=== PATIENT | female | born 1980 ===

== ENCOUNTER 2025-11-06 05:55 | Emergency (ER) | payer OTHER, SELFPAY ==
--- OUTSIDE RECORDS SUMMARY | 2025-11-05 17:31 | XMS_ITS | Encounter Summary ---
Author Organization [facility] Address [id number] [place] [id number] Care Team Providers Care Child Care Development Specialist Name Role Phone Vandana Antonio MD Primary Care Prov ider Reason for Visit * Reason Comments Abdominal Pain Abdominal Pain, Weak ness Encounter Details Date Type Department Care Team (Late st Contact Info) Description 11/05/2025 5:31 PM [facility] Emergency [address] [place] [phone] Darryl Hawkins MD [address] [place] [address] Josias Mark MD [address] [place] [address] Ahmet Dias MD [address] [place] [address] Gastroenteritis (Primary Dx); Generalized weakness; Malaise and fatigue Social History Tobacco Use Types Packs/Day Years Used Date Smoking Tobacco: Never Smokeless Tobacco: Never Alcohol Use Standard Drinks/Week Comments Yes 0 (1 standard drink = 0.6 oz pur e alcohol) Housing Instability Answer Date Recorde d Are you worried that in the next 2 months you may not have stable housing? Yes 05/14/2025 Food Access & Nutrition Answer Date Rec orded Do you have access to a vari ety of food including fruits and vegetables? No 05/14/2025 Health Literacy Answer Date Recorded How often do you need to hav e someone help you when you read instructions, pamphlets, or other written material from your doctor or pharmacy? Never 05/14/2025 Caregiver: How often do you need to have someone help you when you read instructions, pamphlets, or other written material from your doctor or pharmacy? Not on file 05/14/2025 Financial Risk Answer Date Recorded How hard is it for you to pa y for the very basics like food, housing, medical care, and air conditioning / heating? Not very hard 05/14/2025 Transportation Answer Date Recorded Has the lack of transportati on kept you from meetings, work, or from getting things needed for daily living? Yes Has the lack of transportati on kept you from medical appointments or from getting medications? Yes 05/14/2025 Social Isolation Answer Date Recorded How often do you feel lonely or isolated from those around you? Sometimes 05/14/2025 Food Risk Answer Date Recorded Within the past 12 months we worried whether our food would run out before we got money to buy more. Sometimes true 025 Within the past 12 months th e food we bought just didn't last and we didn't have money to get more. Sometimes true 05/14/2025 Dependent Care Answer Date Recorded Do you need help finding or paying for care for your loved ones. For example, early childhood assistant or elderly care for an older adult? No 05/14/2025 Education Answer Date Recorded Do you think completing more education or training, like finishing a GED, going to college, or learning a trade, would be helpful for you? No 05/14/2025 Employment and Income Answer Date Recor ded During the last four weeks, have you been actively looking for work? No 05/14/2025 Living Situation Answer Date Recorded What is your living situation? Unrecognized valu e 05/14/2025 Comments No Sex and Gender Information Value Date Recorded Sex Assigned at Female 02/16/2025 4:41 PM EDT Legal Sex Female 9:50 PM EST Gender Identity Female 02/16/2025 4:41 PM EDT Sexual Orientation Straight 02/16/2025 4: 41 PM EDT Occupation Industry Job Start Date Job End Date unemployed Not on file Not on file Not on file documented as of this encounter Last Filed Vital Signs Vital Sign Reading Time Taken Comments Blood Pressure 110/76 11/06/2025 3:26 AM EST Pulse 76 11/06/2025 3:26 AM EST Temperature 36.4 C (97.5 F) 11/06/2025 3:26 AM EST Respiratory Rate 16 11/06/2025 3:26 AM EST Oxygen Saturation 99% 11/06/2025 3:26 AM EST Inhaled Oxygen Concentration - - Weight - - Height - - Body Mass Index - - documented in this encounter Progress Notes * Amandeep Polanco MD - 11/05/2025 5:46 PM EST 45-year-old female presents for abdominal bloating cramping vomiting and diarrhea for the last few days. States she is also having very dark stools. Feels generally weak. Possible GI bleed, evaluate CBC for symptomatic anemia. * Nina Francois RN - 11/05/2025 5:44 PM EST Pt to ed reports nausea , vomiting, diarrhea, with cramping and bloating started within last few days. Pt reports excessive tired over last few months. Pt reports dark stools. * Darryl Hawkins MD - 11/05/2025 5:31 PM EST HPI Chief Complaint Patient presents with Abdominal Pain Abdominal Pain, Weakness 45-year-old with history of anxiety, PTSD, homelessness, fibromyalgia, presents with abdominal bloating and cramping vomiting and diarrhea for the past few days. States she is also having dark stools. Generalized weakness. HemoCue stable on arrival. Abdomen nontender to palpation. No data recorded Patient History Medical History[1] Surgical History[2] Family History[3] Social History Tobacco Use Smoking status: Never Smokeless tobacco: Never Vaping Use Vaping status: Never Used Substance Use Topics Alcohol use: Yes Drug use: No Review of Systems Review of Systems All other systems reviewed and are negative. Physical Exam ED Triage Vitals [11/05/25 1748] Temp Heart Rate Resp BP 36.9 ??C (98.4 ??F) 86 16 (!) 124/112 SpO2 Temp Source Heart Rate Source Patient Position 98 % Oral -- -- BP Location FiO2 (%) -- -- Physical Exam Constitutional: Appearance: She is well-developed. HENT: Head: Normocephalic and atraumatic. Nose: Nose normal. Mouth/Throat: Mouth: Mucous membranes are moist. Eyes: Extraocular Movements: Extraocular movements intact. Pupils: Pupils are equal, round, and reactive to light. Cardiovascular: Rate and Rhythm: Normal rate. Pulses: Normal pulses. Pulmonary: Effort: Pulmonary effort is normal. Breath sounds: Normal breath sounds. Abdominal: General: Abdomen is flat. Palpations: Abdomen is soft. Tenderness: There is no abdominal tenderness. Musculoskeletal: Cervical back: Normal range of motion and neck supple. Skin: General: Skin is warm and dry. Neurological: Mental Status: She is alert. Mental status is at baseline. Psychiatric: Mood and Affect: Mood normal. Behavior: Behavior normal. Lab Results I ordered and reviewed: Labs Reviewed COMPREHENSIVE METABOLIC PANEL - Abnormal Result Value Sodium 140 Potassium 3.5 Chloride 106 CO2 24 Anion Gap 10 Glucose 78 BUN <5 (*) Creatinine 0.83 eGFR 89 Calcium 8.7 AST (SGOT) 21 ALT (SGPT) 22 Alkaline Phosphatase 53 Total Protein 6.4 Albumin 4.0 Total Bilirubin 0.2 CBC WITH AUTO DIFFERENTIAL - Abnormal WBC 9.5 RBC 4.20 Hemoglobin 13.0 Hematocrit 40.0 MCV 94.3 MCH 30.7 MCHC 32.5 RDW 12.5 Platelets 251 MPV 10.3 NRBC 0.0 NRBC Absolute 0.00 Neutrophils Relative 73.0 Lymphocytes Relative 17.0 Monocytes Relative 7.0 Eosinophils Relative 2.2 Basophils Relative 0.4 Immature Granulocytes Relative 0.4 Neutrophils Absolute 6.90 Lymphocytes Absolute 1.61 Monocytes Absolute 0.66 Eosinophils Absolute 0.21 Basophils Absolute 0.04 Immature Granulocytes Absolute 0.04 (*) URINALYSIS WITH REFLEX MICROSCOPIC - Normal Specific Boyce Urine 1.007 pH, Urine 8.0 Leukocytes, Urine Negative Nitrite, Urine Negative Protein, Urine Negative Glucose, Urine Negative Ketones, Urine Negative Urobilinogen, Urine 0.2 Bilirubin, Urine Negative Blood, Urine Negative LIPASE - Normal Lipase 27 ETHANOL - Normal Ethanol Level <3 POC , URINE DIAGNOSTIC - Normal HCG, Ur POC Negative POC hCG Int QC Pass? Yes CBC AND DIFFERENTIAL Narrative: The following orders were created for panel order CBC and differential. Procedure Abnormality Status --------- ------ CBC auto differential[[id number]] Abnormal Final result Please view results for these tests on the individual orders. URINALYSIS WITH REFLEX MICROSCOPIC Narrative: The following orders were created for panel order Urinalysis with reflex microscopic ([id number]). Procedure Abnormality Status --------- ------ Urinalysis with reflex ...[[id number]] Normal Final result Please view results for these tests on the individual orders. URINALYSIS WITH REFLEX MICROSCOPIC AND CULTURE Narrative: The following orders were created for panel order Urinalysis with reflex microscopic and culture. Procedure Abnormality Status --------- ------ Urinalysis with reflex ...[[id number]] Cullen urine culture tube[[id number]] Please view results for these tests on the individual orders. DRUG ABUSE SCREEN 8A PANEL, URINE METHADONE SCREEN, URINE URINALYSIS WITH REFLEX MICROSCOPIC AND CULTURE ED Course & MDM ED Course as of 11/06/25217Nov 06, 2025217 Care of patient signed out to Dr. Mark for further workup and management. Appreciate care. [WL] ED Course User Index [WL] Darryl Hawkins MD Clinical Impressions as of 11/06/25217 Gastroenteritis Generalized weakness Malaise and fatigue I ordered the following medications: Medications pantoprazole (PROTONIX) injection 80 mg (has no administration in time range) sodium chloride 0.9 % bolus 1,000 mL (has no administration in time range) Medical Decision Making Differential diagnosis considered but not limited to, acute gastroenteritis, nausea vomiting diarrhea, possible melena Initial laboratory workup reassuring, patient hemodynamically stable. Care of patient signed out to Dr. Mark for further workup and management. Appreciate care. Darryl Hawkins MD [1] Past Medical History: Diagnosis Date ADHD Arthritis Depressive disorder DX:Depressive disorder Factor V Leiden ([facility] V24) Fibromyalgia 11/05/2008 DX:Fibromyalgia; COMMENT: Some help with paroxetine H/O chlamydia infection 1996 DX:H/O chlamydia infection Lack of housing 08/17/2018 DX:Lack of housing Migraine syndrome 03/02/2011 DX:Migraine syndrome Neurasthenia 05/05/2006 DX:Neurasthenia Nonallopathic lesion of sacral region 05/13/2011 DX:Nonallopathic lesion of sacral region; COMMENT: IMO update Obesity (BMI 30-39.9) 08/17/2018 DX:Obesity (BMI 30-39.9) PTSD (post-traumatic stress disorder) [2] Past Surgical History: Procedure Laterality Date SECTION 1997 PROCEDURE: [place] DELIVERY ONLY CHOLECYSTECTOMY 1997 PROCEDURE: [place] LAPAROSCOPY SURG CHOLECYSTECTOMY TYMPANOSTOMY TUBE PLACEMENT Bilateral 1983 PROCEDURE: HISTORICAL PE TUBES [3] Family History Problem Relation Name Age of Onset Arthritis Mother Other (Other: lipomas) Mother COPD Father No Known Problems Sister Arthritis Maternal Grandmother COPD Maternal Grandmother Diabetes Maternal Grandfather Heart attack Maternal Grandfather mat GGF Other cancer Maternal Grandfather Prostate cancer Maternal Grandfather Other (Other: substance abuse) Paternal Grandmother killed by train Diabetes Paternal Grandfather Lung cancer Paternal Grandfather Other (Other: kidney ca) Aunt Lung cancer Aunt Liver cancer Aunt Breast cancer Aunt Breast cancer Aunt pat Bladder Cancer Uncle maternal Pancreatic cancer Uncle maternal Thyroid disease Other m grt aunt GGaunt Breast cancer Other m grt aunt Colon cancer Neg Hx Ovarian cancer Neg Hx Uterine cancer Neg Hx Darryl Hawkins MD 11/06/[address] documented in this encounter Plan of Treatment Scheduled Orders Name Type Priority Associated Diagnoses Order Schedule Urinalysis with reflex microscopic and culture Lab STAT STAT for 1 Occurrences starting 11/06/2025 until 11/06/2025 Drug abuse screen 8a panel, urine Lab STAT Once for 1 Occurrences starting 11/06/2025 until 11/06/2025 Methadone, urine Lab STAT Once for 1 Occurrences starting 11/06/2025 until 11/06/2025 Urinalysis with reflex microscopic and culture Lab Routine Once for 1 Occurrences starting 11/06/2025 until 11/06/2025 Cullen urine culture tube Lab Routine Once for 1 Occurrences starting 11/06/2025 until 11/06/2025 POC Fecal Occult Blood Diagnostic Point of Care Testing STAT Once for 1 Occurrences starting 11/06/2025 until 11/06/2025 documented as of this encounter Procedures Procedure Name Priority Date/Time Associated Diagnosis Comments CBC WITH AUTO DIFFERENTIAL STAT 11/05/2025 6:15 PM EST CBC AND DIFFERENTIAL STAT 11/05/2025 6:15 PM EST POC , URINE DIAGNOSTIC STAT 11/05/2025 6:15 PM EST LIPASE STAT Add-on 11/05/2025 6:15 PM EST ETHANOL STAT Add-on 11/05/2025 6:15 PM EST COMPREHENSIVE METABOLIC PANEL STAT 11/05/2025 6:15 PM EST URINALYSIS WITH REFLEX MICROSCOPIC STAT 11/05/2025 6:10 PM EST URINALYSIS WITH REFLEX MICROSCOPIC STAT 11/05/2025 6:10 PM EST CULLEN URINE CULTURE TUBE Routine 11/05/2025 6:09 PM EST EXTRA TUBES Routine 11/05/2025 6:09 PM EST documented in this encounter Results * Ethanol (11/05/2025 6:15 PM EST) Ethanol Level <3 0 - 10 mg/dL 11/06/2025 1:20 AM EST [facility] Blood Venous blood specimen / Unknown Venipuncture / Unknown 11/05/2025 6:15 PM EST 11/05/2025 6:32 PM EST us Darryl Hawkins MD LAB BLOOD ORDERABLES Final Result [facility] [address] [place] [address], [place] [phone] * Lipase (11/05/2025 6:15 PM EST) [facility] Lipase 27 12 - 53 unit/L 11/05/2025 9:56 PM EST [facility] Blood Venous blood specimen / Unknown Venipuncture / Unknown 11/05/2025 6:15 PM EST 11/05/2025 6:32 PM EST Riley SALGADO LAB BLOOD ORDERABLES Final Result [facility] [address] [place] [address], [place] [phone] * POC , urine manually resulted (11/05/2025 6:15 PM EST) [facility] HCG, Ur POC Negative Negative POC hCG Int QC Pass? Yes Yes Urine Urine specimen obtained by clean catch procedure / Unknown 11/05/2025 6:15 PM EST Darryl Hawkins MD POINT OF CARE TEST ENTER/ED IT ORDERABLES Final Result * (ABNORMAL) CBC auto differential (11/05/2025 6:15 PM EST) [facility] WBC 9.5 4.8 - 10.8 K/mcL LAB HEMETOLOGY METHOD 11/05/2025 6:40 PM [facility] RBC 4.20 3.80 - 4.80 M/mcL LAB HEMETOLOGY METHOD 11/05/2025 6:40 PM [facility] Hemoglobin 13.0 11.5 - 16.0 g/dL LAB HEMETOLOGY METHOD 11/05/2025 6:40 PM [facility] Hematocrit 40.0 35.0 - 47.0 % LAB HEMETOLOGY METHOD 11/05/2025 6:40 PM [facility] MCV 94.3 79.0 - 98.0 FL LAB HEMETOLOGY METHOD 11/05/2025 6:40 PM [facility] MCH 30.7 27.0 - 32.0 pcg LAB HEMETOLOGY METHOD 11/05/2025 6:40 PM [facility] MCHC 32.5 32.0 - 37.0 g/dL LAB HEMETOLOGY METHOD 11/05/2025 6:40 PM [facility] RDW 12.5 11.0 - 15.0 % LAB HEMETOLOGY METHOD 11/05/2025 6:40 PM [facility] Platelets 251 130 - 400 K/mcL LAB HEMETOLOGY METHOD 11/05/2025 6:40 PM [facility] MPV 10.3 7.0 - 11.0 FL LAB HEMETOLOGY METHOD 11/05/2025 6:40 PM [facility] NRBC 0.0 <1.0 % LAB HEMETOLOGY METHOD 11/05/2025 6:40 PM [facility] NRBC Absolute 0.00 <0.10 K/mcL LAB HEMETOLOGY METHOD 11/05/2025 6:40 PM [facility] Neutrophils Relative 73.0 % LAB HEMETOLOGY METHOD 11/05/2025 6:40 PM [facility] Lymphocytes Relative 17.0 % LAB HEMETOLOGY METHOD 11/05/2025 6:40 PM [facility] Monocytes Relative 7.0 % LAB HEMETOLOGY METHOD 11/05/2025 6:40 PM [facility] Eosinophils Relative 2.2 % LAB HEMETOLOGY METHOD 11/05/2025 6:40 PM [facility] Basophils Relative 0.4 % LAB HEMETOLOGY METHOD 11/05/2025 6:40 PM [facility] Immature Granulocytes Relative 0.4 % LAB HEMETOLOGY METHOD 11/05/2025 6:40 PM [facility] Neutrophils Absolute 6.90 1.50 - 7.00 K/mcL LAB HEMETOLOGY METHOD 11/05/2025 6:40 PM EST [facility] Lymphocytes Absolute 1.61 1.00 - 5.00 K/[facility] LAB HEMETOLOGY METHOD 11/05/2025 6:40 PM EST [facility] Monocytes Absolute 0.66 0.20 - 1.00 K/[facility] LAB HEMETOLOGY METHOD 11/05/2025 6:40 PM EST [facility] Eosinophils Absolute 0.21 0.00 - 0.50 K/[facility] HEMETOLOGY METHOD 11/05/2025 6:40 PM EST [facility] Basophils Absolute 0.04 0.00 - 0.20 K/[facility] HEMETOLOGY METHOD 11/05/2025 6:40 PM EST [facility] Immature Granulocytes Absolute 0.04(H) 0.00 - 0.03 K/[facility] HEMETOLOGY METHOD 11/05/2025 6:40 PM EST [facility] Blood Venous blood specimen / Unknown Venipuncture / Unknown 11/05/2025 6:15 PM EST 11/05/2025 6:32 PM EST Amandeep Polanco MD LAB BLOOD ORDERABLES Final Resu lt [facility] [address] [place] [address], * (ABNORMAL) Comprehensive Metabolic Panel (CMP) (11/05/2025 6:15 PM EST) Sodium 140 133 - 145 mmol/L 11/05/2025 7:18 PM EST [facility] Potassium 3.5 3.5 - 5.5 mmol/L 11/05/2025 7:18 PM [facility] Chloride 106 96 - 110 mmol/L 11/05/2025 7:18 PM EST [facility] CO2 24 21 - 32 mmol/L 11/05/2025 7:18 PM [facility] Anion Gap 10 3 - 11 11/05/2025 7:18 PM [facility] Glucose 78 70 - 100 mg/dL 11/05/2025 7:18 PM [facility] BUN <5(L) 5 - 25 mg/dL 11/05/2025 7:18 PM [facility] Comment:Results verified by repeat testing Creatinine 0.83 0.50 - 1.10 mg/dL 11/05/2025 7:18 PM [facility] eGFR 89 >=60 mL/min/1. 73m2 11/05/2025 7:18 PM [facility] Comment:Calculation based on the Chronic Kidney Disease Epidemiology Collaboration (CKD-EPI) equation refit without adjustment for race. Calcium 8.7 8.5 - 10.5 mg/dL 11/05/2025 7:18 PM [facility] AST (SGOT) 21 10 - 42 unit/L 11/05/2025 7:18 PM [facility] ALT (SGPT) 22 10 - 60 unit/L 11/05/2025 7:18 PM [facility] Alkaline Phosphatase 53 42 - 121 unit/L 11/05/2025 7:18 PM [facility] Total Protein 6.4 6.0 - 8.0 g/dL 11/05/2025 7:18 PM [facility] Albumin 4.0 3.2 - 5.0 g/dL 11/05/2025 7:18 PM [facility] Total Bilirubin 0.2 0.0 - 1.4 mg/dL 11/05/2025 7:18 PM [facility] Blood Venous blood specimen / Unknown Venipuncture / Unknown 11/05/2025 6:15 PM EST 11/05/2025 6:32 PM EST us Amandeep Polanco MD LAB BLOOD ORDERABLES Final Resu lt [facility] [address] [place] [address], [place] [phone] * Urinalysis with reflex microscopic (11/05/2025 6:10 PM EST) Specific Boyce Urine 1.007 1.003 - 1.030 LAB URINALYSIS - AUTOMATED METHOD 11/05/2025 6:37 PM [facility] pH, Urine 8.0 5.0 - 8.0 pH LAB URINALYSIS - AUTOMATED METHOD 11/05/2025 6:37 PM [facility] Leukocytes, Urine Negative Negative LAB URINALYSIS - AUTOMATED METHOD 11/05/2025 6:37 PM [facility] Nitrite, Urine Negative Negative LAB URINALYSIS - AUTOMATED METHOD 11/05/2025 6:37 PM [facility] Protein, Urine Negative <=Trace mg/dL LAB URINALYSIS - AUTOMATED METHOD 11/05/2025 6:37 PM [facility] Glucose, Urine Negative Negative mg/dL LAB URINALYSIS - AUTOMATED METHOD 11/05/2025 6:37 PM [facility] Ketones, Urine Negative Negative mg/dL LAB URINALYSIS - AUTOMATED METHOD 11/05/2025 6:37 PM [facility] Urobilinogen, Urine 0.2 0.2 - 1.0 mg/dL LAB URINALYSIS - AUTOMATED METHOD 11/05/2025 6:37 PM [facility] Bilirubin, Urine Negative Negative LAB URINALYSIS - AUTOMATED METHOD 11/05/2025 6:37 PM [facility] Blood, Urine Negative Negative LAB URINALYSIS - AUTOMATED METHOD 11/05/2025 6:37 PM [facility] Urine Urine specimen obtained by clean catch procedure / Unknown Non-blood Collection / Unknown 11/05/2025 6:10 PM EST 11/05/2025 6:31 PM EST Amandeep Polanco MD LAB URINE ORDERABLES Final Resu lt Performing Organization Address [facility]/ZIP Co de Phone Number [facility] [address] [place] [address], [place] [phone] * Cullen urine culture tube (11/05/2025 6:09 PM EST) Extra Tube Hold for add-ons. 11/05/2025 8:01 PM EST [facility] Comment:Auto resulted. Urine Urine specimen obtained by clean catch procedure / Unknown Non-blood Collection / Unknown 11/05/2025 6:09 PM EST 11/05/2025 6:31 PM EST Vandana Antonio MD LAB URINE ORDERABL ES Final Result Performing Organization Address [facility] de Phone Number [facility] [address] [place] [address], documented in this encounter Visit Diagnoses Diagnosis Gastroenteritis- Primary Other and unspecified noninfectious gastroenteritis and colitis Generalized weakness Malaise and fatigue documented in this encounter Orders Medications Ordered That Torito ht Not Have Been Administered Count Last Ordered Date First Ordered Date pantoprazole (PROTONIX) injection 80 mg 1 1 01/07/2025 sodium chloride 0.9 % bolus 1,000 mL 1 10/16 documented in this encounter Additional Health Concerns Infection Onset Date Last Indicated Resolved Time Gastrointestinal Rule-Out 11/05/2025 11/05/2025 documented as of this encounter Care Teams Child Care Development Specialist Relationship Specialty Start Date End Date Vandana Antonio MD [address] [place] [phone] PCP - General Internal Medicine 07/03/25 documented as of this encounter
--- NOTE | ~2025-11-06 | XR_ITS ---
EXAMINATION: XR CHEST 2 VIEWS HISTORY: Cough COMPARISON: There are no prior studies available for comparison. FINDINGS: PA and lateral views of the chest are submitted. The lungs are expanded and clear. There is no pleural effusion, pneumothorax, or pulmonary vascular congestion. The heart is normal in size. The bones are intact. There are surgical clips in the right upper quadrant. XR/XR chest 2V IMPRESSION: Normal examination of the chest. Electronically signed by: Arcenio Odell MD 11/06/2025 08:16 AM LIS[facility]
--- NOTE | ~2025-11-06 | XR_ITS ---
EXAMINATION: XR ABDOMEN 1 VIEW (KUB) HISTORY: Constipation COMPARISON: There are no prior studies available for comparison. FINDINGS: Upright views of the abdomen are submitted. The bowel gas pattern is unremarkable, without evidence of mechanical obstruction. There is no free intraperitoneal gas. There is a moderate amount of stool throughout the colon. There are surgical clips in the right upper quadrant. No abnormal calcifications are identified. There are no abnormal soft tissue masses. The bones are intact. XR/XR abdomen 1V IMPRESSION: Moderate amount of stool throughout the colon. Electronically signed by: Arcenio Odell MD 11/06/2025 08:18 AM EST
[2025-11-06 05:59] VITALS: BP 124/57; PULSE 73; RESP 20; TEMP 36; O2SAT 100; BMI 29.3
[2025-11-06 06:39] LABS: Alanine Aminotransferase 32 U/L (0-31); Albumin Level 3.6 g/dL (3.5-5.0); Alkaline Phosphatase 49 U/L (39-117); Anion Gap 14 (12-20); Aspartate Amino Transferase 42 U/L (5-31); Blood Urea Nitrogen 5 mg/dL (9-16); Calcium 9.1 mg/dL (8.4-10.2); Carbon Dioxide 16 mmol/L (22-29); Chloride 113 mmol/L (96-108); Creatinine Clr Calc Pharmacy 66.6; Estimated Glomerular Filt Rate > 60; Potassium 4.0 mmol/L (3.3-5.1); Sodium 139 mmol/L (135-145); Total Protein 6.8 g/dL (6.5-8.0)
[2025-11-06 07:19] LABS: Hematocrit 39.3 % (37.0-47.0); Hemoglobin 12.8 g/dl (12.0-16.0); Imm Gran Abs Auto 0.04 X10*3/uL (0.00-0.03); Imm Gran Pct Auto 0.4 % (0.0-0.4); Lymphocytes Absolute Auto 2.2 X10*3/uL (1.2-4.9); Mean Corpuscular HGB Conc 32.6 g/dl (31.0-35.0); Mean Corpuscular Hemoglobin 30.7 pg (27.0-33.0); Mean Corpuscular Volume 94.2 fL (80.0-98.0); NRBC Abs Auto 0.000 X10*3/uL (0.0-0.012); NRBC Pct Auto 0.0 /100WBC (0.0-0.2); Platelet Count 246 X10*3/uL (160-400); Red Blood Count 4.17 X10*6/uL (4.20-5.50); White Blood Count 8.9 X10*3/uL (4.8-10.8)
--- NOTE | 2025-11-06 07:45 | ED_ITS ---
HPI - General Adult General Chief complaint: Weakness Stated complaint: weakness Time Seen by Provider: 11/06/25 07:09 History of Present Illness ED Provider: Michelle Ash NP HPI narrative: 45-year-old female who denies any significant medical history presents to the ED with chief complaint of generalized abdominal pain, decreased urination, poor p.o. intake ongoing for the past several months. She presents to the ED today for reporting she feels very bloated, and does not feel she has been able to have regular bowel movements. No diarrhea. Reporting some constipation. No black, tarry stools or bloody stools. Some nausea, no vomiting. Is passing gas. Denies any chest pain or pressure, shortness of breath. Does endorse some cough. Nonproductive. No recent fever, chills or illnesses. Related Data Allergies Allergy/AdvReac Type Severity Reaction Status Date / Time No Known Allergies Allergy Verified 11/06/25 06:02 Review of Systems 2 Review of Systems: ROS is otherwise negative unless mentioned in HPI. [facility] Social History Social History Smoked in Last 30 Days: No Use of substances other than those prescribed or required for medical reasons: No Advance Directives: No Advance Directives Information Provided: Yes Patient : No Physical Exam ED Exam Exam: Nursing notes and vital signs reviewed. Constitutional: Well-appearing, NAD. Alert. Oriented X3. Eyes: EOMI. ENT: Pharynx normal. Neck: Normal inspection. Neck supple. CVS: Normal heart rate and rhythm. Pulses normal. Respiratory: No respiratory distress. Breath sounds normal. Abdomen: Soft, nontender, nondistended. +BSX4. Skin: Skin warm and dry. Normal skin color. Extremities: No lower extremity edema. Neuro: Oriented X 3. No motor deficit. Vital Signs: Vital Signs - 24 hr 11/06/25 05:59 11/06/25 11:11 Temperature 96.8 F Pulse Rate 73 73 Respiratory Rate 20 16 Blood Pressure 124/57 L 92/60 Pulse Oximetry 100 100 Oxygen Delivery Method Room Air Room Air BMI result Body Mass Index 29.3 Medications Administered Discontinued Medications Generic Name Dose Route Start Last Admin Trade Name Freq PRN Reason Stop Dose Admin Famotidine 20 mg 11/06/25 07:22 11/06/25 07:54 Famotidine/Pf 20 Mg/2 Ml Vial IVPUSH 11/06/25 07:23 20 mg ONCE ONE Administration Sodium Chloride 1,000 mls @ 999 mls/hr 11/06/25 07:22 11/06/25 08:56 Ns IV 11/06/25 08:22 Infused .Q1H1M ONE Infusion Ondansetron HCl 4 mg 11/06/25 07:22 11/06/25 07:54 Ondansetron Hcl 4 Mg/2 Ml Vial IVPUSH 11/06/25 07:23 4 mg ONCE ONE Administration Medical Decision Making Medical Decision Making [facility] Narrative: Upon my initial assessment, the patient reports she has been having generalized belly aches ongoing for several months now. Reporting some nausea, no vomiting, but also difficulty with bloating, and feeling as though she is not having enough bowel movements. This relates to some decreased oral intake per her report. No fever or chills. She is vitally stable upon arrival to the ED. Per the triage note, the patient has been cutting back on her medications. Though she tells me she does not take any. Plan for labs, x-ray of the abdomen given constipation report, x-ray of the chest to rule out pneumonia, urinalysis with , viral swab. Ordered antiemetic, IV fluids. 11:35 AM-- upon reassessment, she is eating chips, drinking water. Her lab work has been overall reassuring, LFTs are mildly elevated. This can be rechecked outpatient. The urine sample here shows no signs of infection, and viral panel is negative. X-ray of the abdomen shows a mild to moderate stool burden, x-ray of the chest with no acute pneumonia. She further does tell me that she has medications prescribed her at home that she has not been taking/has been taking irregularly including topiramate, omeprazole. I do not see these in her prescribed medication list. I did recommend she speaks with her primary care provider, and take the medications as prescribed to her. I instructed her use [id number] stool softeners, and follow up with PCP within 1 week. With any worsening complaints, she is to return to the ED for reassessment. Differential Diagnosis Differential Diagnoses: The differential diagnosis associated with the presentation includes Viral illness, constipation, cystitis, pneumonia, electrolyte disturbances Admission/Observation Consideration of admission/observation: Escalation of care including admission/observation considered (Not indicated) Lab Data MDM Lab Attestation statement: I reviewed the patient's lab results. (Overall reassuring) 11/06/25 07:08 11/06/25 06:08 Labs: Lab Results 11/06/25 11/06/25 11/06/25 Range/Units 06:08 07:08 07:37 WBC 8.9 (4.8-10.8) X10*3/uL RBC 4.17 L (4.20-5.50) X10*6/uL Hgb 12.8 (12.0-16.0) g/dl Hct 39.3 (37.0-47.0) % MCV 94.2 (80.0-98.0) fL MCH 30.7 (27.0-33.0) pg MCHC 32.6 (31.0-35.0) g/dl RDW 12.8 (11.0-16.0) % Plt Count 246 (160-400) X10*3/uL MPV 10.1 (9.4-12.3) fL Immature Gran % (Auto) 0.4 (0.0-0.4) % Neut % (Auto) 61.6 (45-73) % Lymph % (Auto) 24.6 (20-40) % [place] % (Auto) 8.9 (2-11) % Eos % (Auto) 4.1 H (0-4) % Baso % (Auto) 0.4 (0-2) % Lymph # (Auto) 2.2 (1.2-4.9) X10*3/uL [place] # (Auto) 0.8 (0.1-1.2) X10*3/uL Eos # (Auto) 0.4 (0.0-0.4) X10*3/uL Baso # (Auto) 0.0 (0.0-0.2) X10*3/uL Abs Immat Gran (auto) 0.04 H (0.00-0.03) X10*3/uL Absolute Neuts (auto) 5.5 (2.0-8.3) x10*3/uL Absolute Nucleated RBC 0.000 (0.0-0.012) X10*3/uL Nucleated RBC % (auto) 0.0 (0.0-0.2) /100WBC Sodium 139 (135-145) mmol/L Potassium 4.0 (3.3-5.1) mmol/L Chloride 113 H (96-108) mmol/L Carbon Dioxide 16 L (22-29) mmol/L Anion Gap 14 (12-20) BUN 5 L (9-16) mg/dL Creatinine 0.85 (0.5-1.4) mg/dL Estim Creat Clear Calc 66.6 Estimated GFR > 60 Random Glucose 90 (60-115) mg/dL Calcium 9.1 (8.4-10.2) mg/dL Total Bilirubin 0.4 (0.0-1.0) mg/dL Direct Bilirubin 0.2 (0.0-0.5) mg/dL AST 42 H (5-31) U/L ALT 32 H (0-31) U/L Alkaline Phosphatase 49 (39-117) U/L Total Protein 6.8 (6.5-8.0) g/dL Albumin 3.6 (3.5-5.0) g/dL Lipase 20 (8-78) U/L Urine Color Urine Appearance Urine pH (5.0-9.0) Ur Specific Cable (1.005-1.025) Urine Protein (Neg-Trace) mg/dL Urine Glucose (UA) (Negative) mg/dL Urine Ketones (Negative) mg/dL Urine Blood (Negative) Urine Nitrite (Negative) Ur Leukocyte Esterase (Negative) Urine Test (NEGATIVE) Influenza Type A (PCR) NEGATIVE (Negative) Influenza Type B (PCR) NEGATIVE (Negative) RSV RNA Qual (PCR) NEGATIVE (Negative) SARS-CoV-2 RNA (RT-PCR) NEGATIVE (Negative) 11/06/25 Range/Units 11:16 WBC (4.8-10.8) X10*3/uL RBC (4.20-5.50) X10*6/uL Hgb (12.0-16.0) g/dl Hct (37.0-47.0) % MCV (80.0-98.0) fL MCH (27.0-33.0) pg MCHC (31.0-35.0) g/dl RDW (11.0-16.0) % Plt Count (160-400) X10*3/uL MPV (9.4-12.3) fL Immature Gran % (Auto) (0.0-0.4) % Neut % (Auto) (45-73) % Lymph % (Auto) (20-40) % [place] % (Auto) (2-11) % Eos % (Auto) (0-4) % Baso % (Auto) (0-2) % Lymph # (Auto) (1.2-4.9) X10*3/uL [place] # (Auto) (0.1-1.2) X10*3/uL Eos # (Auto) (0.0-0.4) X10*3/uL Baso # (Auto) (0.0-0.2) X10*3/uL Abs Immat Gran (auto) (0.00-0.03) X10*3/uL Absolute Neuts (auto) (2.0-8.3) x10*3/uL Absolute Nucleated RBC (0.0-0.012) X10*3/uL Nucleated RBC % (auto) (0.0-0.2) /100WBC Sodium (135-145) mmol/L Potassium (3.3-5.1) mmol/L Chloride (96-108) mmol/L Carbon Dioxide (22-29) mmol/L Anion Gap (12-20) BUN (9-16) mg/dL Creatinine (0.5-1.4) mg/dL Estim Creat Clear Calc Estimated GFR Random Glucose (60-115) mg/dL Calcium (8.4-10.2) mg/dL Total Bilirubin (0.0-1.0) mg/dL Direct Bilirubin (0.0-0.5) mg/dL AST (5-31) U/L ALT (0-31) U/L Alkaline Phosphatase (39-117) U/L Total Protein (6.5-8.0) g/dL Albumin (3.5-5.0) g/dL Lipase (8-78) U/L Urine Color Yellow Urine Appearance Clear Urine pH 6.0 (5.0-9.0) Ur Specific Cable 1.015 (1.005-1.025) Urine Protein Negative (Neg-Trace) mg/dL Urine Glucose (UA) Negative (Negative) mg/dL Urine Ketones Negative (Negative) mg/dL Urine Blood Negative (Negative) Urine Nitrite Negative (Negative) Ur Leukocyte Esterase Negative (Negative) Urine Test NEGATIVE (NEGATIVE) Influenza Type A (PCR) (Negative) Influenza Type B (PCR) (Negative) RSV RNA Qual (PCR) (Negative) SARS-CoV-2 RNA (RT-PCR) (Negative) Independent Interpretation I performed an independent interpretation of an: Plain X-Ray Interpretation: I have reviewed the patient's imaging and agree with the radiologist's findings. Radiology Impression Discussion of test interpretation with radiology: I have reviewed the radiologist's reading. Radiologist Impression: XR/XR abdomen 1V IMPRESSION: Moderate amount of stool throughout the colon. XR/XR chest 2V IMPRESSION: Normal examination of the chest. External Record Review External record reviewed: Outside ED record Prescription Management I considered prescription management with: Antibiotic Not indicated Chronic Conditions Patient?s care impacted by: Other (Mood disorder) Social Determinants Patient?s care significantly limited by Social Determinants of Health including: Problems related to primary support group Discharge Plan Discharge Clinical Impression: Abdominal pain Constipation Qualifiers: Constipation type: unspecified constipation type Qualified Code(s): K59.00 - Constipation, unspecified Patient Disposition: Home, Self-Care Instructions: Constipation (DC) Additional Instructions: As we discussed, you were seen in the ER today for evaluation of abdominal pain. Your workup was overall reassuring at this time. Your lab work was overall reassuring, but your liver function tests are mildly elevated. Please have these rechecked with your PCP. The urine sample here shows no signs of infection. The viral panel was also negative for COVID, flu, RSV. The x-ray of the abdomen does show a moderate amount of stool throughout the colon. To treat this, we recommend using [id number] stool softeners including MiraLax, Metamucil, Colace. We also recommend you use a stimulant laxative such as Dulcolax to help stimulate bowel movements. The x-ray of the chest shows no acute pneumonia. Please follow up with your PCP with within 1 week. With any worsening complaints, return back to the ED for additional assessment. Referrals: Vandana Antonio MD [Primary Care Provider, Internal Medicine] Print Language: Nigerian
--- OUTSIDE RECORDS SUMMARY | 2025-11-06 07:47 | XMS_ITS | Clinical Summary ---
Author Organization [facility] [place] [facility] Address [address] [place] [address] Phone Care Team Providers Care Dumper Operator Name Role Phone Vandana Antonio MD Primary Care Prov ider Allergies Active Allergy Reactions Criticality Noted Date Comments Estrogens 11/14/2024 Causes DVT's Mold 11/14/2024 Medications gabapentin (NEURONTIN) 100 mg capsule Take 1 Capsule by mouth 2 times daily as needed (RLS, sciatica). 08/07/2024 Active apixaban (Eliquis) 5 mg tablet Take 1 tablet (5 mg total) by mouth 2 (two) times a day. 180 each 1 11/14/2024 Active omeprazole (PriLOSEC) [address] capsule Take 1 capsule (20 mg total) by mouth 2 (two) times a day. 180 each 1 05/14/2025 Active topiramate (TOPAMAX) 50 mg tablet Take 1 tablet by mouth twice daily 180 tablet 1 05/15/2025 Active spironolactone (ALDACTONE) 50 mg tablet Take 1 tablet by mouth twice daily 180 tablet 1 05/15/2025 Active solifenacin (VESICARE) 5 mg tablet Take 1 tablet (5 mg total) by mouth 1 (one) time each day. 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 Not using CPAP. 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 Has been referred to dentist for mandibular advancement device. Restless legs syndrome 07/20/2019 Lack of housing 08/17/2018 Migraines 03/02/2011 Encounters Date Type Department Care Team Description 11/05/2025 5:[address] [facility] [address] [place] [phone] Darryl Hawkins MD Fainsod, Joshua, MD Muhoozi, Bannet, MD Gastroenteritis (Primary Dx); Generalized weakness; Malaise and fatigue 09/06/2025 10:54 PM EDT - 09/07/2025 12:[address] [facility] [address] [place] [phone] Ivana Pappas MD Lightheadedness (Primary Dx); Chest pain, unspecified type Discharge Disposition: Home or Self Care 09/06/2025 2:45 PM EDT Office Visit Urogynecology [address] [phone] Teresa Schulte MD OAB (overactive bladder) (Primary Dx); Recurrent major depressive disorder, remission status unspecified ([facility] V24); Housing insecurity; Levator spasm 08/28/2025 Telephone Adult Medicine [facility] [address] [place] [phone] Tia Arizmendi MA 08/21/2025 1:30 PM EDT Office Visit Adult Medicine [facility] [address] [place] [phone] Vandana Mendez MD Viral gastritis (Primary Dx); Obstructive sleep apnea syndrome 08/20/2025 Telephone Adult Medicine - [place] [address] [place] [phone] Vandana Mendez MD 08/10/2025 Telephone Adult Medicine - [place] [address] [place] [phone] Vandana Mendez MD from Last 3 Months Immunizations Immunization Administration Dates Next Due HPV, Quadrivalent 06/24/2007 Hep B, Unspecified 08/10/2019,1981 MMR, measles mumps and rubel la Live (Priorix; M-M-R II) 12mo and older 1982 Tdap Tetanus diptheria acell ular pertussis (Boostrix; Adacel) 7yo and older 01/08/2020,05/01/2010 Surgical History Surgery Date Site/Laterality Comments SECTION 1997 PROCEDURE: DC DELIVERY ONLY CHOLECYSTECTOMY 1997 PROCEDURE: DC LAPAROSCOPY SURG CHOLECYSTECTOMY TYMPANOSTOMY TUBE PLACEMENT 1983 Bilateral PROCEDURE: HISTORICAL PE TUBES Medical History Medical History Date Comments Neurasthenia 05/05/2006 DX:Neurasthenia Fibromyalgia 11/05/2008 DX:Fibromyalgia; COMMENT: Some help with paroxetine Migraine syndrome 03/02/2011 DX:Migraine sy ndrome H/O chlamydia infection 1996 DX:H/O c hlamydia infection Nonallopathic lesion of sacral region 05/13/2011 DX:Nonallopathic lesion of sacral region; COMMENT: IMO update Depressive disorder DX:Depressiv e disorder Obesity (BMI 30-39.9) 08/17/2018 DX:Obesity (BMI 30-39.9) Lack of housing 08/17/2018 DX:Lack of housi ng Factor V Leiden ([facility] V24) Arthritis PTSD (post-traumatic stress disorder) Adhd Family History Medical History Relation Name Comments Liver cancer Aunt 1 Lung cancer Aunt 1 Other: kidney ca Aunt 1 Breast cancer Aunt 2 Breast cancer Aunt 3 pat COPD Father Diabetes Maternal Grandfather Heart attack Maternal Grandfather mat GGF Other cancer Maternal Grandfather Prostate cancer Maternal Grandfather Arthritis Maternal Grandmother COPD Maternal Grandmother Arthritis Mother Other: lipomas Mother Breast cancer Other m grt aunt Thyroid disease Other m grt aunt GGaunt Diabetes Paternal Grandfather Lung cancer Paternal Grandfather Other: substance abuse Paternal Grandmother killed by train No Known Problems Sister Bladder Cancer Uncle 1 maternal Pancreatic cancer Uncle 2 maternal Colon cancer Neg Hx Ovarian cancer Neg Hx Uterine cancer Neg Hx Relation Name Status Comments Aunt 1 Aunt 2 Alive Aunt 3 pat Alive Father (Age 69) Maternal Grandfather Maternal Grandmother Mother Alive Other m grt aunt Paternal Grandfather Paternal Grandmother Sister Alive Uncle 1 Alive Uncle 2 Alive Social History Tobacco Use Types Packs/Day Years Used Date Smoking Tobacco: Never Smokeless Tobacco: Never Tobacco Cessation:Counseling Given: Not Answered Alcohol Use Standard Drinks/Week Comments Yes 0 [...] care for your loved ones. For example, child protection specialist or elderly care for an older adult? [...] file Not on file Not on file Obstetrics History Para Term AB IAB SAB Ectopic Multiple Livin g Live Births 2 2 2 2 Date Outcome GA Total Labor Labor/2nd/3rd Weight Sex Type Anes PTL Jacqueline A1 A5 Name Clin Term Term Last Filed Vital Signs Vital Sign Reading Time Taken Comments Blood Pressure 110/76 11/06/2025 3:26 AM EST Pulse 76 11/06/2025 3:26 AM EST Temperature 36.4 C (97.5 F) 11/06/2025 3:26 AM EST Respiratory Rate 16 11/06/2025 3:26 AM EST Oxygen Saturation 99% 11/06/2025 3:26 AM EST Inhaled Oxygen Concentration - - Weight 63.5 kg (140 lb) 09/06/2025 7:24 PM EDT Height 142.2 cm (4' 8 ) 09/06/2025 7:24 PM EDT Body Mass Index 31.39 09/06/2025 7:24 PM EDT Plan of Treatment Health Maintenance Due Date Last Done Comments Cervical Cancer Screening: HPV 2002 HPV Vaccines (2 - 3-dose series) 07/22/2007 06/24/2007 Hepatitis B Vaccines (3 of 3 - 3-dose series) 10/05/2019 08/10/2019, 1981 Cholesterol Screening (Lipid Panel) 10/17/2022 Medicare Annual Wellness Visit 10/17/2022 Depression Screening 11/15/2024 COVID-19 Vaccine ( - season) 2025 Influenza Vaccine (#1) 2025 Social Influencers of Health Screening 05/14/2026 05/14/2025 Breast Cancer Screening 02/08/2027 02/09/20 25, 01/31/2025, 01/25/2024, Additional history exists DTaP,Tdap,and Td Vaccines (3 - Td or Tdap) 01/08/2030 01/08/2020, 05/01/2010 RSV Immunization Adult Patients (1 - 1-dose 75+ series) 2056 MMR Vaccines Completed 1982 HIV Screening Completed 06/22/2025 Hepatitis C Screening Completed 06/22/2025 HIB Vaccines Aged Out No longer eligi ble based on patient's age to complete this topic Hepatitis A Vaccines Aged Out No long er eligible based on patient's age to complete this topic IPV Vaccines Aged Out No longer eligi ble based on patient's age to complete this topic Meningococcal ACWY Vaccine Aged Out N o longer eligible based on patient's age to complete this topic Meningococcal B Vaccine Aged Out No l onger eligible based on patient's age to complete this topic Pneumococcal Vaccine: Pediatrics (0 to 5 Years) and At-Risk Patients (6 to 49 Years) Aged Out No longer eligible based on patient's age to complete this topic RSV Immunization Patients Under 20 months Aged Out No longer eligible based on patient's age to complete this topic Varicella Vaccines Aged Out No longer eligible based on patient's age to complete this topic Procedures Procedure Name Priority Date/Time Associated Diagnosis Comments POC , URINE DIAGNOSTIC STAT 11/05/2025 6:15 PM EST ETHANOL STAT Add-on 11/05/2025 6:15 PM EST LIPASE STAT Add-on 11/05/2025 6:15 PM EST CBC WITH AUTO DIFFERENTIAL STAT 11/05/2025 6:15 PM EST CBC AND DIFFERENTIAL STAT 11/05/2025 6:15 PM EST COMPREHENSIVE METABOLIC PANEL STAT 11/05/2025 6:15 PM EST URINALYSIS WITH REFLEX MICROSCOPIC STAT 11/05/2025 6:10 PM EST URINALYSIS WITH REFLEX MICROSCOPIC STAT 11/05/2025 6:10 PM EST CULLEN URINE CULTURE TUBE Routine 11/05/2025 6:09 PM EST EXTRA TUBES Routine 11/05/2025 6:09 PM EST ECG ANNOTATED 09/07/2025 TROPONIN I HIGH SENSITIVITY Timed 09/06/2025 10:58 PM EDT XR CHEST 2 VIEWS STAT 09/06/2025 7:50 PM EDT CBC WITH AUTO DIFFERENTIAL STAT 09/06/2025 7:44 PM EDT B-TYPE NATRIURETIC PEPTIDE STAT 09/06/2025 7:44 PM EDT MAGNESIUM STAT 09/06/2025 7:44 PM EDT LIPASE STAT 09/06/2025 7:44 PM EDT COMPREHENSIVE METABOLIC PANEL STAT 09/06/2025 7:44 PM EDT CBC AND DIFFERENTIAL STAT 09/06/2025 7:44 PM EDT TROPONIN I HIGH SENSITIVITY Timed 09/06/2025 7:44 PM EDT ECG 12-LEAD STAT 09/06/2025 7:36 PM EDT HEPATITIS C ANTIBODY Routine 06/22/2025 3:25 PM EDT Screen for STD (sexually transmitted disease) HIV 1, 2 ANTIBODY, P24 ANTIGEN WITH REFLEX TO DIFFERENTIATION Routine 06/22/2025 3:25 PM EDT Screen for STD (sexually transmitted disease) MG MAMMO DIGITAL DIAGNOSTIC W DEMAR LEFT Routine 02/08/2025 2:01 PM EDT Abnormal mammogram from Last 3 Months or Most Recently Relevant to Health Maintenance Results * (ABNORMAL) CBC auto differential (11/05/2025 6:15 PM EST) Only the most recent of2 resultswithin the time period is included. WBC 9.5 4.8 - 10.8 K/mcL LAB HEMETOLOGY METHOD 11/05/2025 6:40 PM [facility] RBC 4.20 3.80 - 4.80 M/mcL LAB HEMETOLOGY METHOD 11/05/2025 6:40 PM [facility] Hemoglobin 13.0 11.5 - 16.0 g/dL LAB HEMETOLOGY METHOD 11/05/2025 6:40 PM [facility] Hematocrit 40.0 35.0 - 47.0 % LAB HEMETOLOGY METHOD 11/05/2025 6:40 PM [facility] MCV 94.3 79.0 - 98.0 FL LAB HEMETOLOGY METHOD 11/05/2025 6:40 PM [facility] MCH 30.7 27.0 - 32.0 pcg LAB HEMETOLOGY METHOD 11/05/2025 6:40 PM [facility] MCHC 32.5 32.0 - 37.0 g/dL LAB HEMETOLOGY METHOD 11/05/2025 6:40 PM [facility] RDW 12.5 11.0 - 15.0 % LAB HEMETOLOGY METHOD 11/05/2025 6:40 PM [facility] Platelets 251 130 - 400 K/mcL LAB HEMETOLOGY METHOD 11/05/2025 6:40 PM [facility] MPV 10.3 7.0 - 11.0 FL LAB HEMETOLOGY METHOD 11/05/2025 6:40 PM [facility] NRBC 0.0 <1.0 % LAB HEMETOLOGY METHOD 11/05/2025 6:40 PM [facility] NRBC Absolute 0.00 <0.10 K/mcL LAB HEMETOLOGY METHOD 11/05/2025 6:40 PM [facility] Neutrophils Relative 73.0 % LAB HEMETOLOGY METHOD 11/05/2025 6:40 PM [facility] Lymphocytes Relative 17.0 % LAB HEMETOLOGY METHOD 11/05/2025 6:40 PM [facility] Monocytes Relative 7.0 % LAB HEMETOLOGY METHOD 11/05/2025 6:40 PM [facility] Eosinophils Relative 2.2 % LAB HEMETOLOGY METHOD 11/05/2025 6:40 PM [facility] Basophils Relative 0.4 % LAB HEMETOLOGY METHOD 11/05/2025 6:40 PM [facility] Immature Granulocytes Relative 0.4 % LAB HEMETOLOGY METHOD 11/05/2025 6:40 PM [facility] Neutrophils Absolute 6.90 1.50 - 7.00 K/mcL LAB HEMETOLOGY METHOD 11/05/2025 6:40 PM [facility] Lymphocytes Absolute 1.61 1.00 - 5.00 K/mcL LAB HEMETOLOGY METHOD 11/05/2025 6:40 PM [facility] Monocytes Absolute 0.66 0.20 - 1.00 K/mcL LAB HEMETOLOGY METHOD 11/05/2025 6:40 PM [facility] Eosinophils Absolute 0.21 0.00 - 0.50 K/mcL LAB HEMETOLOGY METHOD 11/05/2025 6:40 PM [facility] Basophils Absolute 0.04 0.00 - 0.20 K/mcL LAB HEMETOLOGY METHOD 11/05/2025 6:40 PM EST [facility] Immature Granulocytes Absolute 0.04(H) 0.00 - 0.03 K/mcL LAB HEMETOLOGY METHOD 11/05/2025 6:40 PM EST [facility] Blood Venous blood specimen / Unknown Venipuncture / Unknown 11/05/2025 6:15 PM EST 11/05/2025 6:32 PM EST Amandeep Polanco MD LAB BLOOD ORDERABLES Final Resu lt [facility] [address] [place] [address], [place] [phone] * POC , urine manually resulted (11/05/2025 6:15 PM EST) HCG, Ur POC Negative Negative POC hCG Int QC Pass? Yes Yes Urine Urine specimen obtained by clean catch procedure / Unknown 11/05/2025 6:15 PM EST Darryl Hawkins MD POINT OF CARE TEST ENTER/ED IT ORDERABLES Final Result * Lipase (11/05/2025 6:15 PM EST) Only the most recent of2 resultswithin the time period is included. Lipase 27 12 - 53 unit/L 11/05/2025 9:56 PM EST [facility] Blood Venous blood specimen / Unknown Venipuncture / Unknown 11/05/2025 6:15 PM EST 11/05/2025 6:32 PM EST us Riley SALGADO LAB BLOOD ORDERABLES Final Result [facility] [address] [place] [address], [place] [phone] * Ethanol (11/05/2025 6:15 PM EST) Ethanol Level <3 0 - 10 mg/dL 11/06/2025 1:20 AM EST [facility] Blood Venous blood specimen / Unknown Venipuncture / Unknown 11/05/2025 6:15 PM EST 11/05/2025 6:32 PM EST Darryl Hawkins MD LAB BLOOD ORDERABLES Final Result [facility] [address] [place] [address], [place] [phone] * (ABNORMAL) Comprehensive Metabolic Panel (CMP) (11/05/2025 6:15 PM EST) Only the most recent of2 resultswithin the time period is included. Pathologist [facility] Sodium 140 133 - 145 mmol/L 11/05/2025 7:18 PM [facility] Potassium 3.5 3.5 - 5.5 mmol/L 11/05/2025 7:18 PM [facility] Chloride 106 96 - 110 mmol/L 11/05/2025 7:18 PM [facility] CO2 24 21 - 32 mmol/L 11/05/2025 7:18 PM [facility] Anion Gap 10 3 - 11 11/05/2025 7:18 PM [facility] Glucose 78 70 - 100 mg/dL 11/05/2025 7:18 PM [facility] BUN <5(L) 5 - 25 mg/dL 11/05/2025 7:18 PM [facility] Comment:Results verified by repeat testing Creatinine 0.83 0.50 - 1.10 mg/dL 11/05/2025 7:18 PM [facility] eGFR 89 >=60 mL/min/1. 73m2 11/05/2025 7:18 PM [facility] Comment:Calculation based on the Chronic Kidney Disease Epidemiology Collaboration (CKD-EPI) equation refit without adjustment for race. Calcium 8.7 8.5 - 10.5 mg/dL 11/05/2025 7:18 PM [facility] AST (SGOT) 21 10 - 42 unit/L 11/05/2025 7:18 PM [facility] ALT (SGPT) 22 10 - 60 unit/L 11/05/2025 7:18 PM [facility] Alkaline Phosphatase 53 42 - 121 unit/L 11/05/2025 7:18 PM [facility] Total Protein 6.4 6.0 - 8.0 g/dL 11/05/2025 7:18 PM [facility] Albumin 4.0 3.2 - 5.0 g/dL 11/05/2025 7:18 PM [facility] Total Bilirubin 0.2 0.0 - 1.4 mg/dL 11/05/2025 7:18 PM [facility] Blood Venous blood specimen / Unknown Venipuncture / Unknown 11/05/2025 6:15 PM EST 11/05/2025 6:32 PM EST us Amandeep Polanco MD LAB BLOOD ORDERABLES Final Resu lt [facility] [address] [place] [address], * Urinalysis with reflex microscopic (11/05/2025 6:10 PM EST) Specific [place] Urine 1.007 1.003 - 1.030 LAB URINALYSIS - AUTOMATED METHOD 11/05/2025 6:37 PM [facility] pH, Urine 8.0 5.0 - 8.0 pH LAB URINALYSIS - AUTOMATED METHOD 11/05/2025 6:37 PM [facility] Leukocytes, Urine Negative Negative LAB URINALYSIS - AUTOMATED METHOD 11/05/2025 6:37 PM [facility] Nitrite, Urine Negative Negative LAB URINALYSIS - AUTOMATED METHOD 11/05/2025 6:37 PM [facility] Protein, Urine Negative <=Trace mg/dL LAB URINALYSIS - AUTOMATED METHOD 11/05/2025 6:37 PM [facility] Glucose, Urine Negative Negative mg/dL LAB URINALYSIS - AUTOMATED METHOD 11/05/2025 6:37 PM [facility] Ketones, Urine Negative Negative mg/dL LAB URINALYSIS - AUTOMATED METHOD 11/05/2025 6:37 PM [facility] Urobilinogen, Urine 0.2 0.2 - 1.0 mg/dL LAB URINALYSIS - AUTOMATED METHOD 11/05/2025 6:37 PM [facility] Bilirubin, Urine Negative Negative LAB URINALYSIS - AUTOMATED METHOD 11/05/2025 6:37 PM [facility] Blood, Urine Negative Negative LAB URINALYSIS - AUTOMATED METHOD 11/05/2025 6:37 PM [facility] Urine Urine specimen obtained by clean catch procedure / Unknown Non-blood Collection / Unknown 11/05/2025 6:10 PM EST 11/05/2025 6:31 PM EST us Amandeep Polanco MD LAB URINE ORDERABLES Final Resu lt [facility] [address] [place] [address], * Cullen urine culture tube (11/05/2025 6:09 PM EST) Extra Tube Hold for add-ons. 11/05/2025 8:01 PM [facility] Comment:Auto resulted. Urine Urine specimen obtained by clean catch procedure / Unknown Non-blood Collection / Unknown 11/05/2025 6:09 PM EST 11/05/2025 6:31 PM EST Vandana Antonio MD LAB URINE ORDERABL ES Final Result Performing Organization Address [facility] Co de Phone Number [facility] [address] [place] [address], [place] [phone] * ECG-Annotated (09/07/2025) Provider Onbase ECG ORDERABLES Final Result * Troponin I high sensitivity (09/06/2025 10:58 PM EDT) Only the most recent of2 resultswithin the time period is included. High Sensitivity Troponin I <3 <=54 ng/L LAB CHEMISTRY METHOD 09/06/2025 11:37 PM EDT [facility] Blood Venous blood specimen / Unknown Venipuncture / Unknown 09/06/2025 10:58 PM EDT 09/06/2025 11:09 PM EDT Narrative [facility] - 09/06/2025 11:37 PM EDT High levels of biotin in samples may falsely decrease hsTroponin values. Use caution when interpreting hsTroponin results in patients taking biotin who exhibit renal impairment (eGFR <60) or in patients taking more than 20 mg/day of biotin. Nayeli SALGADO LAB BLOOD ORDERABLES Fin al Result Performing Organization Address [facility]/ZIP Co de Phone Number [facility] [address] [place] [address], [place] [phone] * XR Chest 2 Views (09/06/2025 7:50 PM EDT) Anatomical Region Laterality Modality Body Radiographic Sapphire ging 09/07/2025 8:06 AM EDT Impressions 09/07/2025 8:06 AM EDT No acute findings. -------- FINAL REPORT -------- Dictated By: Wilfred Hensley Dictated Date: 09/07/2025 08:06 ET Assigned Physician: Wilfred Hensley Reviewed and Electronically Signed By: Wilfred Hensley Signed Date: 09/07/2025 08:06 ET Workstation ID: [id number] Transcribed By: Self Edit Transcribed Date: 09/07/2025 08:06 ET Narrative 09/07/2025 8:06 AM EDT PROCEDURE: PA and lateral radiographs of the chest. HISTORY: chest pain. COMPARISON: 02/16/2025. FINDINGS: Mild degenerative changes of the spine and shoulders. Cholecystectomy clips. Lungs, pleural spaces, pulmonary vasculature, and cardiomediastinal contours are normal. Procedure Note Wilfred Hensley MD - 09/07/2025 PROCEDURE: PA and lateral radiographs of the chest. HISTORY: chest pain. COMPARISON: 02/16/2025. FINDINGS: Mild degenerative changes of the spine and shoulders. Cholecystectomyclips. Lungs, pleural spaces, pulmonary vasculature, andcardiomediastinal contours are normal. IMPRESSION: No acute findings. -------- FINAL REPORT -------- Dictated By: Wilfred Hensley Dictated Date: 09/07/2025 08:06 ET Assigned Physician: Wilfred Hensley Reviewed and Electronically Signed By: Wilfred Hensley Signed Date: 09/07/2025 08:06 ET Workstation ID: [id number] Transcribed By: Self Edit Transcribed Date: 09/07/2025 08:06 ET Nayeli SALGADO IMG XR PROCEDURES Final Result * B-type natriuretic peptide (09/06/2025 7:44 PM EDT) BNP 2 <=100 pcg/mL LAB CHEMISTRY METHOD 09/06/2025 9:17 PM EDT [facility] Blood Venous blood specimen / Unknown Venipuncture / Unknown 09/06/2025 7:44 PM EDT 09/06/2025 8:28 PM EDT Nayeli SALGADO LAB BLOOD ORDERABLES Fin al Result Performing Organization Address [facility] de Phone Number [facility] [address] [place] [address], [place] [phone] * Magnesium (09/06/2025 7:44 PM EDT) [facility] Magnesium 2.0 1.9 - 2.6 mg/dL LAB CHEMISTRY METHOD 09/06/2025 9:09 PM EDT [facility] Blood Venous blood specimen / Unknown Venipuncture / Unknown 09/06/2025 7:44 PM EDT 09/06/2025 8:28 PM EDT Nayeli SALGADO LAB BLOOD ORDERABLES Fin al Result Performing Organization Address [facility] de Phone Number [facility] [address] [place] [address], [place] [phone] * ECG 12 lead (09/06/2025 7:36 PM EDT) [facility] Ventricular Rate ECG 83 BPM GEMUSE Atrial Rate 83 BPM GEMUSE P-R Interval 140 ms GEMUSE QRS Duration 72 ms GEMUSE Q-T Interval 370 ms GEMUSE QTc 434 ms GEMUSE P Wave Sevier 74 degrees GEMUSE R Sevier 42 degrees GEMUSE T Sevier 59 degrees GEMUSE ECG Interpretation Normal sinus rhythm Normal ECG When compared with ECG of 16-FEB-2025 16:05, No significant change was found Confirmed by Robin MATHIAS JAMES ([id number]) on 09/07/2025 6:27:36 PM GEMUSE 09/06/2025 7:36 PM EDT 09/07/2025 6:27 PM EDT Nayeli SALGADO ECG ORDERABLES Final Re sult Performing Organization Address [facility] Co de Phone Number GEMUSE * Hepatitis C antibody (06/22/2025 3:25 PM EDT) Hepatitis C Antibody Negative Negative LAB CHEMISTRY METHOD 06/22/2025 7:44 PM EDT [facility] Blood Venous blood specimen / Unknown Venipuncture / Unknown 06/22/2025 3:25 PM EDT 06/22/2025 3:25 PM EDT Riley SALGADO LAB BLOOD ORDERABLES Final Res ult [facility] [address] [place] [address], * HIV 1,2 antibody, p24 antigen with reflex to differentiation (06/22/2025 3:25 PM EDT) HIV Combo AB/AG Negative Negative LAB CHEMISTRY METHOD 06/22/2025 7:45 PM EDT [facility] Blood Venous blood specimen / Unknown Venipuncture / Unknown 06/22/2025 3:25 PM EDT 06/22/2025 3:25 PM EDT Narrative [facility] - 06/22/2025 7:45 PM EDT This assay is a 4th generation assay allowing for earlier detection of HIV infection by detecting the presence of the HIV-1 p24 antigen as well as the traditional antibodies to HIV type 1 (including group O) and type 2. Use of a 4th generation assay is the current CDC recommendation for HIV screening. us Riley SALGADO LAB BLOOD ORDERABLES Final Res ult [facility] [address] [place] [address], [place] [phone] * MG Mammo Digital Diagnostic w Demar Left (02/08/2025 2:01 PM EDT) Anatomical Region Laterality Modality Breast Left Mammography 02/08/2025 3:39 PM EDT Impressions 02/08/2025 3:47 PM EDT LEFT BREAST: Benign-appearing lymph node at 2:30 o'clock at 15 cm from the nipple. Benign, no evidence of malignancy. Patient may return to routine screening mammogram in 12 months. Findings and recommendations were discussed with the patient at completion of the studies. BREAST DENSITY: C - The breasts are heterogeneously dense which may obscure small masses. BI-RADS CATEGORY: 2 - BENIGN RECOMMENDATION: Mammography: Screening bilateral mammogram is recommended in 1 year. Ultrasound: Screening bilateral mammogram is recommended in 1 year. Mammo Location: [facility], [address] [place] [address], [id number], . -------- FINAL REPORT -------- Dictated By: Glenda Henson Dictated Date: 02/08/2025 15:39 ET Assigned Physician: Glenda Henson Reviewed and Electronically Signed By: Glenda Henson Signed Date: 02/08/2025 15:47 ET Workstation ID: [id number] Transcribed By: Self Edit Transcribed Date: 02/08/2025 15:39 ET Narrative 02/08/2025 3:47 PM EDT HISTORY: Callback from screening for asymmetry seen on the left MLO posterior depth. STUDIES: 1. Unilateral left diagnostic mammography with tomosynthesis and CAD 2. Targeted ultrasound of the left breast TECHNIQUE: Unilateral left digital diagnostic mammography is obtained and read in conjunction with computer-aided detection. Tomosynthesis as well as 2-D C view imaging were obtained. Spot compression Tomosynthesis images were also obtained. COMPARISON: January 31, 2025 LEFT BREAST: Multiple attempts were performed to attempt to include the previously seen asymmetry in the axillary tail, which measured about 0.8 cm and was located at 14 cm from the nipple. The finding could only be partially reproduced in the full-field MLO view. Targeted ultrasound of the left breast was performed at the location of the mammographic finding. The survey shows a 0.8 x 0.3 x 0.7 cm benign-appearing lymph node with normal cortical thickness of 0.1 cm at 2:30 o'clock at 15 cm from the nipple. This finding correlates with the mammographic finding. No abnormal vascularity demonstrated with color Doppler evaluation. Procedure Note Glenda Henson MD - 02/08/2025 HISTORY: Callback from screening for asymmetry seen on the left MLOposterior depth. STUDIES: 1. Unilateral left diagnostic mammography with tomosynthesis and CAD 2. Targeted ultrasound of the left breast TECHNIQUE: Unilateral left digital diagnostic mammography is obtained andread in conjunction with computer-aided detection. Tomosynthesis as wellas 2-D C view imaging were obtained. Spot compression Tomosynthesis imageswere also obtained. COMPARISON: January 31, 2025 LEFT BREAST: Multiple attempts were performed to attempt to include thepreviously seen asymmetry in the axillary tail, which measured about 0.8cm and was located at 14 cm from the nipple. The finding could only bepartially reproduced in the full- field MLO view. Targeted ultrasound of the left breast was performed at the location ofthe mammographic finding. The survey shows a 0.8 x 0.3 x 0.7 cmbenign-appearing lymph node with normal cortical thickness of 0.1 cm at2:30 o'clock at 15 cm from the nipple. This finding correlates with themammographic finding. No abnormal vascularity demonstrated with colorDoppler evaluation. IMPRESSION: LEFT BREAST: Benign-appearing lymph node at 2:30 o'clock at 15 cm from thenipple. Benign, no evidence of malignancy. Patient may return to routinescreening mammogram in 12 months. Findings and recommendations were discussed with the patient at completionof the studies. BREAST DENSITY: C - The breasts are heterogeneously dense which mayobscure small masses. BI-RADS CATEGORY: 2 - BENIGN RECOMMENDATION: Mammography: Screening bilateral mammogram is recommended in 1 year. Ultrasound: Screening bilateral mammogram is recommended in 1 year. Mammo Location: [facility], [address] [place] [address], [id number], . -------- FINAL REPORT -------- Dictated By: Glenda Henson Dictated Date: 02/08/2025 15:39 ET Assigned Physician: Glenda Henson Reviewed and Electronically Signed By: Glenda Henson Signed Date: 02/08/2025 15:47 ET Workstation ID: [id number] Transcribed By: Self Edit Transcribed Date: 02/08/2025 15:39 ET Vandana Antonio MD IMG BI PROCEDURES Final Result from Last 3 Months or Most Recently Relevant to Health Maintenance Additional Health Concerns Infection Onset Date Last Indicated Gastrointestinal Rule-Out 11/05/20252024 Insurance [employer] MED[employer]ARE Member Subscriber Plan / Payer (Ef fective 2024-Present) Name:FARHAD CANDELARIA Relation to Subscriber:Self Name:Farhad Candelaria Payer ID:[id number] Group ID:[id number] Type:Not on file Address: [address] [place] [address] Care Teams Dumper Operator Relationship Specialty Start Date End Date Vandana Antonio MD [address] [place] [address] PCP - General Internal Medicine 07/03/25
--- OUTSIDE RECORDS SUMMARY | 2025-11-06 07:47 | XMS_ITS | Encounter Summary ---
Author Organization [facility] Address [address] [place] [address] Phone Care Team Providers Care Electric Shaver Mechanic Name Role Phone Vandana Antonio MD Primary Care Pr ovider Encounter Details Date Type Department Care Team (Late st Contact Info) Description 07/19/2024 Procedure Pass [address] [address] Social History Tobacco Use Types Packs/Day Years Used Date Smoking Tobacco: Never Smokeless Tobacco: Never Education Answer Date Recorded Are you interested in more education? Not on richardson e 03/12/2023 Are you concerned about learning? Not on file 03/12/2023 No 03/12/2023 No 03/12/2023 Digital Access Answer Date Recorded No 04/13/2023 No 04/13/2023 Reliable internet access at home? Not on file 04/13/2023 Device with a working camera? Not on file Comments Unknown Sex and Gender Information Value Date Recorded Sex Assigned at Female 08/30/2020 11:15 AM EDT Legal Sex Female 11:01 AM EDT Gender Identity Female 08/30/2020 11:15 AM EDT Sexual Orientation Straight 08/30/2020 11 :15 AM EDT documented as of this encounter Plan of Treatment Upcoming Encounters Date Type Department Care Team (Late st Contact Info) Description 12/19/2025 11:00 AM EST Office Visit [facility] [address] [place] [address], 8th Floor, [address] [place] [address] Bogdan Pederson MD, PhD [address] [place] [address] [place] [address] [email or web address] 05/29/2026 8:00 AM EDT Office Visit [facility]rology Clinic [address] [facility] [facility], 8th Floor, [address] [place] [address] Nima Song MD 55 [facility] [address] [place] [address] [email or web address] 10/01/2026 2:00 PM EST Office Visit [facility] Pulmonary [facility] [address] [facility], 2nd Floor, [address] [place] [address] Curtis Lyles MD 55 [facility] 201 [place] [address] [email or web address] documented as of this encounter Visit Diagnoses Not on filedocumented in this encounter Care Teams Electric Shaver Mechanic Relationship Specialty Start Date End Date Vandana Antonio MD [address] [place] [address] PCP - General Internal Medicine 03/09/22 documented as of this encounter Additional Source Comments The information contained in this document represents components of the legal health record. It is not the complete legal health record.[facility]
--- OUTSIDE RECORDS SUMMARY | 2025-11-06 07:47 | XMS_ITS | Encounter Summary ---
Author Organization [facility] Address [address] [address] [facility] [address] [place] [address] Phone Care Team Providers Care Contact Acid Plant Operator Helper Name Role Phone Vandana Antonio MD Primary Care Pr ovider Encounter Details Date Type Department Care Team (Late st Contact Info) Description 05/11/2024 Procedure Pass [address] [address] Social History Tobacco Use Types Packs/Day Years [...] Description 12/19/2025 11:00 AM EST Office Visit [facility] [address] [place] [address], 8th Floor, [address] [place] [address] Bogdan Pederson MD, PhD [address] [place] [address] [place] [address] [email or web address] 05/29/2026 8:00 AM EDT Office Visit [facility] Neurology Clinic [address] [facility], 8th Floor, [address] [place] [address] Nima Song MD 55 [facility] [address] [place] [address] [email or web address] 10/01/2026 2:00 PM EST Office Visit [facility] Pulmonary [facility] [address] [facility], 2nd Floor, [address] [place] [address] Curtis Lyles MD 55 [facility] [address] [place] [address] [email or web address] documented as of this encounter Visit Diagnoses Not on filedocumented in this encounter Care Teams Contact Acid Plant Operator Helper Relationship Specialty Start Date End Date Vandana Antonio MD [address] [place] [address] PCP - General Internal Medicine 03/09/22 documented as of this encounter Additional Source Comments The information contained in this document represents components of the legal health record. It is not the complete legal health record.[facility]
--- OUTSIDE RECORDS SUMMARY | 2025-11-06 07:47 | XMS_ITS | Encounter Summary ---
Author Organization [facility] Address [address] [facility] [address] [place] [address] Phone Care Team Providers Care Animal Physiologist Name Role Phone Vandana Antonio MD Primary Care Pr ovider Encounter Details Date Type Department Care Team (Late st Contact Info) Description 03/13/[address], Benja [address] [facility], 2nd Floor, [address] [place] [address] Social History Tobacco Use Types Packs/Day Years [...] Description 12/19/2025 11:00 AM EST Office Visit [facility] [address] [facility], 8th Floor, [address] [place] [address] Bogdan Pederson MD, PhD [address] [facility] [place] [address] [email or web address] 05/29/2026 8:00 AM EDT Office Visit [facility]rology [facility] [address] [facility], 8th Floor, [address] [place] [address] Nima Song MD 55 [facility] [address] [place] [address] [email or web address] 10/01/2026 2:00 PM EST Office Visit [facility]monary [facility] 55 [facility], 2nd Floor, [address] [place] [address] Curtis Lyles MD 55 [facility] 201 [place] [address] [email or web address] documented as of this encounter Visit Diagnoses Not on filedocumented in this encounter Care Teams Animal Physiologist Relationship Specialty Start Date End Date Vandana Antonio MD [address] [place] [address] PCP - General Internal Medicine 03/09/22 documented as of this encounter Additional Source Comments The information contained in this document represents components of the legal health record. It is not the complete legal health record.[facility]
--- OUTSIDE RECORDS SUMMARY | 2025-11-06 07:47 | XMS_ITS | Encounter Summary ---
Author Organization [facility] Address [address] [facility] [address] [place] [address] Phone Care Team Providers Care Drink Mixer Name Role Phone Vandana Antonio MD Primary Care Pr ovider Encounter Details Date Type Department Care Team (Late st Contact Info) Description 09/18/2024 Telephone [facility] [address], 7th Floor, [address] [place] [address] Johanny Drake MD [address] [facility] [address] [place] [address] [email or web address] Social History Tobacco Use Types Packs/Day Years [...] Description 12/19/2025 11:00 AM EST Office Visit [facility] [address] [facility], 8th Floor, [address] [place] [address] Bogdan Pederson MD, PhD 55 [facility] [place] [address] [email or web address] 05/29/2026 8:00 AM EDT Office Visit [facility]rology [facility] [address] [facility], 8th Floor, [address] [place] [address] Nima Song MD [address] [place] [address] 720 [place] [address] [email or web address] 10/01/2026 2:00 PM EST Office Visit [facility] Pulmonary [facility] [address] [facility], 2nd Floor, [address] [place] [address] Curtis Lyles MD [address] [facility] [address] [place] [address] [email or web address] documented as of this encounter Visit Diagnoses Not on filedocumented in this encounter Care Teams Drink Mixer Relationship Specialty Start Date End Date Vandana Antonio MD [address] [place] [address] PCP - General Internal Medicine 03/09/22 documented as of this encounter Additional Source Comments The information contained in this document represents components of the legal health record. It is not the complete legal health record.[facility]
--- OUTSIDE RECORDS SUMMARY | 2025-11-06 07:47 | XMS_ITS | Encounter Summary ---
Author Organization [facility] Address [address] [place] [address] Phone Care Team Providers Care Brake Linings Coater Name Role Phone Vandana Antonio MD Primary Care Pr ovider Encounter Details Date Type Department Care Team (Late st Contact Info) Description 08/19/[address], Benja [address] [facility], 2nd Floor, [address] [place] [address] Social History Tobacco Use Types Packs/Day Years [...] Description 12/19/2025 11:00 AM EST Office Visit [facility] [address] [facility], 8th Floor, [address] [place] [address] Bogdan Pederson MD, PhD [address] [facility] [place] [address] [email or web address] 05/29/2026 8:00 AM EDT Office Visit [facility] [address] [facility], 8th Floor, [address] [place] [address] Niam Song MD [address] [facility] [address] [place] [address] [email or web address] 10/01/2026 2:00 PM EST Office Visit [facility] [address] [facility], 2nd Floor, [address] [place] [address] Curtis Lyles MD 55 [facility] 201 [place] [address] [email or web address] documented as of this encounter Visit Diagnoses Not on filedocumented in this encounter Care Teams Brake Linings Coater Relationship Specialty Start Date End Date Vandana Antonio MD [address] [place] [address] PCP - General Internal Medicine 03/09/22 documented as of this encounter Additional Source Comments The information contained in this document represents components of the legal health record. It is not the complete legal health record.[facility]
--- OUTSIDE RECORDS SUMMARY | 2025-11-06 07:47 | XMS_ITS | Encounter Summary ---
Author Organization [facility] Address [address] [facility] [address] [place] [address] Phone Care Team Providers Care Telemarketer Supervisor Name Role Phone Vandana Antonio MD Primary Care Pr ovider Encounter Details Date Type Department Care Team (Late st Contact Info) Description 03/30/2022 Procedure Pass [facility] Cardiology [address] [facility], [address] [place] [id number] Social History Tobacco Use Types Packs/Day Years Used Date Smoking Tobacco: Never Smokeless Tobacco: Never Comments Unknown Sex and Gender Information Value [...] Description 12/19/2025 11:00 AM EST Office Visit [facility] [address] [facility], 8th Floor, [address] [place] [address] Bogdan Pederson MD, PhD [address] [place] [address] [place] [address] [email or web address] 05/29/2026 8:00 AM EDT Office Visit [facility] [address] [facility], 8th Floor, [address] [place] [address] Nima Song MD [address] [place] [address] [email or web address] 10/01/2026 2:00 PM EST Office Visit [facility]monary [facility] [address] [facility], 2nd Floor, [address] [place] [address] Curtis Lyles MD [address] [facility] [address] [place] [address] [email or web address] documented as of this encounter Visit Diagnoses Not on filedocumented in this encounter Care Teams Telemarketer Supervisor Relationship Specialty Start Date End Date Vandana Antonio MD [address] [place] [address] PCP - General Internal Medicine 03/09/22 documented as of this encounter Additional Source Comments The information contained in this document represents components of the legal health record. It is not the complete legal health record.[facility]
--- OUTSIDE RECORDS SUMMARY | 2025-11-06 07:47 | XMS_ITS | Clinical Summary ---
Author Organization [facility] Address [address] [place] [address] Phone Care Team Providers Care Product Designer Name Role Phone Vandana Antonio MD Primary Care Pr ovider Allergies Active Allergy Reactions Criticality Noted Date Comments Estrogens 03/09/2022 Medications omeprazole (PRILOSEC) 40 MG capsule Take 40 mg by mouth daily. Active spironolactone (ALDACTONE) 50 MG tablet Take 50 mg by mouth 2 (two) times a day. Active multivitamin Liqd Take 5 mL by mouth daily. Active omega 4-gzh-xwu-fish oil 1,000 mg (120 mg-180 mg) Cap Take 1 capsule by mouth daily. Active gabapentin (NEURONTIN) 100 MG capsule Take 100 mg by mouth 3 (three) times a day. Active melatonin 1 mg Tab Take by mouth nightly at bedtime. Active baclofen (LIORESAL) 10 MG tablet Take 10 mg by mouth 3 (three) times a day. Active aspirin-sod bicarb-citric acid (YI-SELTZER) 324 mg TbEF Take 325 mg by mouth every 6 (six) hours as needed. Active topiramate (TOPAMAX) 50 MG tabletIndications: Obesity Take 1 tablet (50 mg total) by mouth 2 (two) times a day. 60 tablet 5 4 Active ondansetron (ZOFRAN) 4 MG tablet TAKE 1 TO 2 TABLETS BY MOUTH EVERY 8 HOURS NEEDED FOR NAUSEA 4 Active Medication-Free TextIndications:At tention deficit hyperactivity disorder (ADHD), unspecified ADHD type OXBILE Active apixaban (ELIQUIS) 5 mg tablet Take 1 tablet (5 mg total) by mouth 2 (two) times a day. 60 tablet 11 03/04/20 Active Active Problems Problem Noted Date Diagnosed Date Discrepancy of arm size 06/09/2022 Arm swelling 06/09/2022 Obesity 05/10/2022 Obstructive sleep apnea syndrome 05/10/2022 Fibromyositis 05/10/2022 Gastroesophageal reflux disease 05/10/2022 Generalized anxiety disorder 05/10/2022 Major depressive disorder 05/10/2022 Migraines 05/10/2022 History of pulmonary embolism 05/10/2022 Restless legs syndrome 05/10/2022 Dyspnea 03/30/2022 Assessment & Plan (10/09/2025 7:33 PM EST): Dr. Newell in Vascular Medicine 03/25/2022 41 y.o.female, in the Vascular Medicine clinic for Swelling of upper arm [M79.89]. PMH of, --Fibromyalgia --Chronic fatigue --OA/DJD --Migraine --Depression --Hx of B/L PE (Dx: 02/2021, Rx w/apixaban for 10 months), she was told the reason was estrogen pills. -- (twin ) requiring (in 1997) --s/p Cholecystectomy in 1997 She is reporting right arm swelling since 2006. She reports that it felt like blew up overnight on one morning but she does not remember exact details. She says that she came out of the shower and all of a sudden clothes were too tight as well as right arm was significantly larger than the other. She reports that the right arm swelling has been about the same since 2006 without any improvement or worsening. However, pain and discomfort has been irregular but intermittent. She has been evaluated prior including with ultrasound and was told to have lymphedema. She has participated in physical therapy. She has also received manual lymphatic drainage, SIRISHA wrapping, as well as compression sleeve. None of these have made any difference. Her physical therapist mention to her about possibility of diagnosis of lipedema. She is also noticing that since September 2021 her left arm has started showing similar presentation which makes her very concerned. She lives in [facility] and specially drove for this visit to get help with diagnosis and management. No known prior personal history of any malignancy. We discussed that diagnosis of lipedema is unlikely given her clinical presentation as well as unilateral involvement. We discussed about possible differential diagnosis of lymphedema, large lipoma, enlarged lymph node, or focused hemihypertrophy of soft tissue/muscles. Sometimes these can be associated with AV fistula. 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 We discussed about obtaining lymphoscintigraphy of right upper extremity for further evaluation and help management. 03/30/22 First [facility] Pulmonary visit. She says that she is not sure why she is here. No outside records. History is circumspect. She reports that a year ago (end of 01/2021), she had three nights in a row of extensive heartburn and reflux, R shoulder was bothering her, felt SOB from the pain, getting worse day by day. Went to ED at [facility], CXR (presumably this was CT) found PE. Hospitalized for a couple of days, then to rehab on Eliquis. Eliquis for about 10 months. PE was attributed to estrogen. She recalls being told that she had a clot in each lung, no clots in the legs. Also saw Dr. Alexander in Rheum in [place] (affiliated with [facility] in [place]) for evaluation for possible lupus. Some clotting issue found, she is not sure what. Not felt to have lupus. Shoulder pain has resolved. GERD is still there, not as bad. She is much better than she was last year, and symptoms have been stable for months. Now, she is better since the blood clot, but still has SOTELO. Wiped out with any exertion, feels like she's doing cardio. Staying the same. ?Saw heart doctor for palpitations during in 1997. Her twins are living in [place]. My evaluation today is limited by lack of outside records and imaging. She has stable dyspnea on exertion, in the setting of a reported history of pulmonary emboli a year ago. Her lung exam today is normal, PFT's and CXR are normal, and exercise oximetry does not show desaturation with ambulation. As is often the case, it is likely that her dyspnea is multifactorial. Since she has a reported history of PE, it is possible that she could have residual clot with pulmonary hypertension (CTEPH), although this would be uncommon. She reports that her activity level decreased after the PE, so she is likely to be deconditioned. She reports that her weight is stable. She is not known to have other conditions, such as anemia, cardiac disease, neuromuscular disease. It is not known whether she might have a hypercoagulable state that was uncovered in her Rheumatology evaluation. 10/29/22 No change in chronic dyspnea. Weight down 9 lbs since she had embolism 02/2021, she reports. By [facility], she is down 5 lbs from her last visit here. She saw Hematology, found to have Factor V Leiden mutation. 03/08/23 V/Q in October without evidence for PE. No decrease in weight. Up 20 lbs since 11/05 in [facility], if accurate. Breathing is the same. Dyspneic with walking 5 minutes to her car. No regular physical activity. No new symptoms. No acute pulmonary issue found. Her deconditioning and overweight contribute. I encouraged her to engage in a gradual program of regular walking, and to lose weight. 08/19/23 She arrived 45 minutes late. History is vague as before, with somewhat inappropriate laughing. No outside records or imaging. Urgent visit because she worries that she could have pulmonary embolism. She has a reported history of PE (I have not been able to obtain confirmatory records or imaging), and sees Hematology at [facility] for heterozygosity for Factor V Leiden. R knee was sore for 2-3 weeks, hurt to bend it, kneecap felt bruised, saw primary care for this last week, to have ultrasound (not yet performed), knee felt better all of a sudden. Two days ago, she noticed more SOB than usual walking from store to car, increased from her baseline. No change since then. She reports that she was diagnosed with pneumonia at [facility] ED in [place] a few weeks ago 07/18/23. No records. Symptoms were R bra line pain with a deep breath. No cough, wheeze, pulled muscle. She reports that CXR was OK (not sure if she had CT chest). She reports that she was told that she had R pneumonia that been there a while. She took what sounds like ZPACK. Pain lasted just that day. She was then seen at [facility] ED 07/23/23 to make sure she was OK, no further workup at that time. She reports that her dad last week with COPD, after COVID and pneumonia. Since our visit in February, she has lost the 20 lbs that she had gained. She has had several weeks of pleuritic chest pains (nonspecific), transient R knee pain (sounds musuculoskeletal), and now dyspnea and lightheadedness (nonspecific), a reported history of recent pneumonia (no records or imaging), in the setting of known heterozygosity for Factor V Leiden mutation and a reported history of PE (no confirmatory records or imaging found). The differential diagnosis for her symptoms is broad, and includes venous thromboembolic disease, musculoskeletal, pneumonia or other inflammatory process, pneumothorax, unlikely cardiac, as well as emotional contribution to symptoms. Further evaluation in the ED is indicated at this time. I was unable to reach the Access Nurse, and I brought the patient to the ED and spoke with the triage staff. 03/13/2024 Last here 08/19/23, when she was sent to ED for concern for PE. CT showed RLL subsegmental PE. Prescribed Xarelto, reports that she took Eliquis instead, with primary care. Then 09/02/24 [facility] ED for cough, treated with azithro and Augmentin. Breathing is better now, not quite as winded. Saw Dr. Drake and Dr. Springer in [facility] Heme 02/23/24, advised indefinite anticoagulation in the setting of recurrent clot. The patient prefers to stay at 5 mg BID of Eliquis. She takes Yi Camden with aspirin instead of famotidine. Stable on Eliquis for recurrent VTE. Unclear if the RLL subsegmental PE could be residual from prior, or if it is new. 10/09/25 Ongoing dyspnea at rest and with exertion, with symptoms consistent with hyperventilation (she volunteers this diagnosis, as well), with reported progression of symptoms, and nonexertional chest pain. We discussed hyperventilation. I gave her a brown paper bag to breath into, which she did more rapidly than normal despite coaching. She says she feels worse after breathing into the paper bag. We reviewed box breathing. I encouraged her to resume counseling, although she reports that she has not found this helpful in the past. She feels lightheaded and dyspnea, as she has been feeling chronically, without acute medical problems found on ED visits. Her exam today is unremarkable. We discussed evaluation in the ED if she feels truly unwell. She defers visit to ED. Plan stress test next available in this patient with incompletely explained chest symptoms and dyspnea, and a family history of cardiac disease. Consider repeat echo if needed (prior echo showed new TR). 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 Managed per primary care. No acute respiratory issues at this time, and she will return to the care of her primary doctor. She would like to return in one year to [facility]. If no respiratory issues at that time, she may wish to cancel. Assessment & Plan (10/22/2024 4:39 PM EST): Dr. Newell in Vascular Medicine 03/25/2022 41 y.o.female, in the Vascular Medicine clinic for Swelling of upper arm [M79.89]. PMH of, --Fibromyalgia --Chronic fatigue --OA/DJD --Migraine --Depression --Hx of B/L PE (Dx: 02/2021, Rx w/apixaban for 10 months), she was told the reason was estrogen pills. -- (twin ) requiring (in 1997) --s/p Cholecystectomy in 1997 She is reporting right arm swelling since 2006. She reports that it felt like blew up overnight on one morning but she does not remember exact details. She says that she came out of the shower and all of a sudden clothes were too tight as well as right arm was significantly larger than the other. She reports that the right arm swelling has been about the same since 2006 without any improvement or worsening. However, pain and discomfort has been irregular but intermittent. She has been evaluated prior including with ultrasound and was told to have lymphedema. She has participated in physical therapy. She has also received manual lymphatic drainage, SIRISHA wrapping, as well as compression sleeve. None of these have made any difference. Her physical therapist mention to her about possibility of diagnosis of lipedema. She is also noticing that since September 2021 her left arm has started showing similar presentation which makes her very concerned. She lives in [facility] and specially drove for this visit to get help with diagnosis and management. No known prior personal history of any malignancy. We discussed that diagnosis of lipedema is unlikely given her clinical presentation as well as unilateral involvement. We discussed about possible differential diagnosis of lymphedema, large lipoma, enlarged lymph node, or focused hemihypertrophy of soft tissue/muscles. Sometimes these can be associated with AV fistula. 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 We discussed about obtaining lymphoscintigraphy of right upper extremity for further evaluation and help management. 03/30/22 First [facility] Pulmonary visit. She says that she is not sure why she is here. No outside records. History is circumspect. She reports that a year ago (end of 01/2021), she had three nights in a row of extensive heartburn and reflux, R shoulder was bothering her, felt SOB from the pain, getting worse day by day. Went to ED at [facility], CXR (presumably this was CT) found PE. Hospitalized for a couple of days, then to rehab on Eliquis. Eliquis for about 10 months. PE was attributed to estrogen. She recalls being told that she had a clot in each lung, no clots in the legs. Also saw Dr. Alexander in Rheum in [place] (affiliated with [facility] in [place]) for evaluation for possible lupus. Some clotting issue found, she is not sure what. Not felt to have lupus. Shoulder pain has resolved. GERD is still there, not as bad. She is much better than she was last year, and symptoms have been stable for months. Now, she is better since the blood clot, but still has SOTELO. Wiped out with any exertion, feels like she's doing cardio. Staying the same. ?Saw heart doctor for palpitations during in 1997. Her twins are living in [place]. My evaluation today is limited by lack of outside records and imaging. She has stable dyspnea on exertion, in the setting of a reported history of pulmonary emboli a year ago. Her lung exam today is normal, PFT's and CXR are normal, and exercise oximetry does not show desaturation with ambulation. As is often the case, it is likely that her dyspnea is multifactorial. Since she has a reported history of PE, it is possible that she could have residual clot with pulmonary hypertension (CTEPH), although this would be uncommon. She reports that her activity level decreased after the PE, so she is likely to be deconditioned. She reports that her weight is stable. She is not known to have other conditions, such as anemia, cardiac disease, neuromuscular disease. It is not known whether she might have a hypercoagulable state that was uncovered in her Rheumatology evaluation. She knows to seek medical attention promptly if her condition worsens. Plan -- We will request disc with images from [facility]. - We will request records and labs from Dr. Booker, Dr. Alexander, and [facility]. - We will check CBC, chemistries, coags, EKG. - We will schedule echocardiogram to evaluate RVSP, LVEF, valves. - Consider nuclear medicine lung scan to look for CTEPH, if there is evidence of PH. 07/22/22 No records or imaging received. Will request again. Labs not in computer from last time, although she recalls having them drawn. Will do today. 10/29/22 No change in chronic dyspnea. Weight down 9 lbs since she had embolism 02/2021, she reports. By [facility], she is down 5 lbs from her last visit here. She saw Hematology, found to have Factor V Leiden mutation. Recent note pending. I am not able to find report or images of CT showing PE, just CXR report. No outside records. Plan V/Q scan to look for evidence of unresolved clot, and CXR. We will request records again. 03/08/23 V/Q in October without evidence for PE. Outside imaging [facility] 02/2021 not received. No decrease in weight. Up 20 lbs since 11/05 in [facility], if accurate. Breathing is the same. Dyspneic with walking 5 minutes to her car. No regular physical activity. No new symptoms. No change in dyspnea. No acute pulmonary issue found. Her deconditioning and overweight contribute. I encouraged her to engage in a gradual program of regular walking, and to lose weight. She would like to return in one year to check on her breathing. I look forward to seeing her then. I have asked her to obtain the discharge summary from 03/05 at [facility], and disc from Radiology with images of CT, as we have not been able to obtain them. 08/19/23 She arrived 45 minutes late. History is vague as before, with somewhat inappropriate laughing. No outside records or imaging. Urgent visit because she worries that she could have pulmonary embolism. She has a reported history of PE (I have not been able to obtain confirmatory records or imaging), and sees Hematology at [facility] for heterozygosity for Factor V Leiden. R knee was sore for 2-3 weeks, hurt to bend it, kneecap felt bruised, saw primary care for this last week, to have ultrasound (not yet performed), knee felt better all of a sudden. Two days ago, she noticed more SOB than usual walking from store to car, increased from her baseline. No change since then. She reports that she was diagnosed with pneumonia at [facility] ED in [place] a few weeks ago 07/18/23. No records. Symptoms were R bra line pain with a deep breath. No cough, wheeze, pulled muscle. She reports that CXR was OK (not sure if she had CT chest). She reports that she was told that she had R pneumonia that been there a while. She took what sounds like ZPACK. Pain lasted just that day. She was then seen at [facility] ED 07/23/23 to make sure she was OK, no further workup at that time. She reports that her dad last week with COPD, after COVID and pneumonia. Since our visit in February, she has lost the 20 lbs that she had gained. She has had several weeks of pleuritic chest pains (nonspecific), transient R knee pain (sounds musuculoskeletal), and now dyspnea and lightheadedness (nonspecific), a reported history of recent pneumonia (no records or imaging), in the setting of known heterozygosity for Factor V Leiden mutation and a reported history of PE (no confirmatory records or imaging found). The differential diagnosis for her symptoms is broad, and includes venous thromboembolic disease, musculoskeletal, pneumonia or other inflammatory process, pneumothorax, unlikely cardiac, as well as emotional contribution to symptoms. Further evaluation in the ED is indicated at this time. I was unable to reach the Access Nurse, and I brought the patient to the ED and spoke with the triage staff. 03/13/2024 Last here 08/19/23, when she was sent to ED for concern for PE. CT showed RLL subsegmental PE. Prescribed Xarelto, reports that she took Eliquis instead, with primary care. Then 09/02/24 [facility] ED for cough, treated with azithro and Augmentin. Breathing is better now, not quite as winded. Saw Dr. Drake and Dr. Springer in [facility] Heme 02/23/24, advised indefinite anticoagulation in the setting of recurrent clot. The patient prefers to stay at 5 mg BID of Eliquis. She brought the images of the [facility] 2020 CT, which showed bilateral lower lobe PE's. I cannot tell if the 08/20/23 RLL subsegmental PE is new or residual. She will send me the [facility] 07/18/23 images, which she reports showed pneumonia, not PE. She takes Yi Camden with aspirin instead of famotidine. Stable on Eliquis for recurrent VTE. Unclear if the RLL subsegmental PE could be residual from prior, or if it is new. 10/09/24 Recurrent venous thromboembolic disease, stable on indefinite anticoagulation. Managed per primary care. No acute respiratory issues at this time, and she will return to the care of her primary doctor. She would like to return in one year to [facility]. If no respiratory issues at that time, she may wish to cancel. Assessment & Plan (03/13/2024 9:51 PM EDT): Dr. Newell in Vascular Medicine 03/25/2022 41 y.o.female, in the Vascular Medicine clinic for Swelling of upper arm [M79.89]. PMH of, --Fibromyalgia --Chronic fatigue --OA/DJD --Migraine --Depression --Hx of B/L PE (Dx: 02/2021, Rx w/apixaban for 10 months), she was told the reason was estrogen pills. -- (twin ) requiring (in 1997) --s/p Cholecystectomy in 1997 She is reporting right arm swelling since 2006. She reports that it felt like blew up overnight on one morning but she does not remember exact details. She says that she came out of the shower and all of a sudden clothes were too tight as well as right arm was significantly larger than the other. She reports that the right arm swelling has been about the same since 2006 without any improvement or worsening. However, pain and discomfort has been irregular but intermittent. She has been evaluated prior including with ultrasound and was told to have lymphedema. She has participated in physical therapy. She has also received manual lymphatic drainage, SIRISHA wrapping, as well as compression sleeve. None of these have made any difference. Her physical therapist mention to her about possibility of diagnosis of lipedema. She is also noticing that since September 2021 her left arm has started showing similar presentation which makes her very concerned. She lives in [facility] and specially drove for this visit to get help with diagnosis and management. No known prior personal history of any malignancy. We discussed that diagnosis of lipedema is unlikely given her clinical presentation as well as unilateral involvement. We discussed about possible differential diagnosis of lymphedema, large lipoma, enlarged lymph node, or focused hemihypertrophy of soft tissue/muscles. Sometimes these can be associated with AV fistula. 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 We discussed about obtaining lymphoscintigraphy of right upper extremity for further evaluation and help management. 03/30/22 First [facility] Pulmonary visit. She says that she is not sure why she is here. No outside records. History is circumspect. She reports that a year ago (end of 01/2021), she had three nights in a row of extensive heartburn and reflux, R shoulder was bothering her, felt SOB from the pain, getting worse day by day. Went to ED at [facility], CXR (presumably this was CT) found PE. Hospitalized for a couple of days, then to rehab on Eliquis. Eliquis for about 10 months. PE was attributed to estrogen. She recalls being told that she had a clot in each lung, no clots in the legs. Also saw Dr. Alexander in Rheum in [place] (affiliated with [facility] in [place]) for evaluation for possible lupus. Some clotting issue found, she is not sure what. Not felt to have lupus. Shoulder pain has resolved. GERD is still there, not as bad. She is much better than she was last year, and symptoms have been stable for months. Now, she is better since the blood clot, but still has SOTELO. Wiped out with any exertion, feels like she's doing cardio. Staying the same. ?Saw heart doctor for palpitations during in 1997. Her twins are living in [place]. My evaluation today is limited by lack of outside records and imaging. She has stable dyspnea on exertion, in the setting of a reported history of pulmonary emboli a year ago. Her lung exam today is normal, PFT's and CXR are normal, and exercise oximetry does not show desaturation with ambulation. As is often the case, it is likely that her dyspnea is multifactorial. Since she has a reported history of PE, it is possible that she could have residual clot with pulmonary hypertension (CTEPH), although this would be uncommon. She reports that her activity level decreased after the PE, so she is likely to be deconditioned. She reports that her weight is stable. She is not known to have other conditions, such as anemia, cardiac disease, neuromuscular disease. It is not known whether she might have a hypercoagulable state that was uncovered in her Rheumatology evaluation. She knows to seek medical attention promptly if her condition worsens. Plan -- We will request disc with images from [facility]. - We will request records and labs from Dr. Booker, Dr. Alexander, and [facility]. - We will check CBC, chemistries, coags, EKG. - We will schedule echocardiogram to evaluate RVSP, LVEF, valves. - Consider nuclear medicine lung scan to look for CTEPH, if there is evidence of PH. 07/22/22 No records or imaging received. Will request again. Labs not in computer from last time, although she recalls having them drawn. Will do today. 10/29/22 No change in chronic dyspnea. Weight down 9 lbs since she had embolism 02/2021, she reports. By [facility], she is down 5 lbs from her last visit here. She saw Hematology, found to have Factor V Leiden mutation. Recent note pending. I am not able to find report or images of CT showing PE, just CXR report. No outside records. Plan V/Q scan to look for evidence of unresolved clot, and CXR. We will request records again. 03/08/23 V/Q in October without evidence for PE. Outside imaging [facility] 02/2021 not received. No decrease in weight. Up 20 lbs since 11/05 in [facility], if accurate. Breathing is the same. Dyspneic with walking 5 minutes to her car. No regular physical activity. No new symptoms. No change in dyspnea. No acute pulmonary issue found. Her deconditioning and overweight contribute. I encouraged her to engage in a gradual program of regular walking, and to lose weight. She would like to return in one year to check on her breathing. I look forward to seeing her then. I have asked her to obtain the discharge summary from 03/05 at [facility], and disc from Radiology with images of CT, as we have not been able to obtain them. 08/19/23 She arrived 45 minutes late. History is vague as before, with somewhat inappropriate laughing. No outside records or imaging. Urgent visit because she worries that she could have pulmonary embolism. She has a reported history of PE (I have not been able to obtain confirmatory records or imaging), and sees Hematology at [facility] for heterozygosity for Factor V Leiden. R knee was sore for 2-3 weeks, hurt to bend it, kneecap felt bruised, saw primary care for this last week, to have ultrasound (not yet performed), knee felt better all of a sudden. Two days ago, she noticed more SOB than usual walking from store to car, increased from her baseline. No change since then. She reports that she was diagnosed with pneumonia at [facility] ED in [place] a few weeks ago 07/18/23. No records. Symptoms were R bra line pain with a deep breath. No cough, wheeze, pulled muscle. She reports that CXR was OK (not sure if she had CT chest). She reports that she was told that she had R pneumonia that been there a while. She took what sounds like ZPACK. Pain lasted just that day. She was then seen at [facility] ED 07/23/23 to make sure she was OK, no further workup at that time. She reports that her dad last week with COPD, after COVID and pneumonia. Since our visit in February, she has lost the 20 lbs that she had gained. She has had several weeks of pleuritic chest pains (nonspecific), transient R knee pain (sounds musuculoskeletal), and now dyspnea and lightheadedness (nonspecific), a reported history of recent pneumonia (no records or imaging), in the setting of known heterozygosity for Factor V Leiden mutation and a reported history of PE (no confirmatory records or imaging found). The differential diagnosis for her symptoms is broad, and includes venous thromboembolic disease, musculoskeletal, pneumonia or other inflammatory process, pneumothorax, unlikely cardiac, as well as emotional contribution to symptoms. Further evaluation in the ED is indicated at this time. I was unable to reach the Access Nurse, and I brought the patient to the ED and spoke with the triage staff. 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 Unclear if the RLL subsegmental PE could be residual from prior, or if it is new. Plan - She will send me the 08/07 images - Plan CT for PE to ensure resolution of the RLL clot. - Plan echo to ensure RVSP is OK. - Return 6 months. Assessment & Plan (08/19/2023 5:27 PM EDT): Dr. Newell in Vascular Medicine 03/25/2022 41 y.o.female, in the Vascular Medicine clinic for Swelling of upper arm [M79.89]. PMH of, --Fibromyalgia --Chronic fatigue --OA/DJD --Migraine --Depression --Hx of B/L PE (Dx: 02/2021, Rx w/apixaban for 10 months), she was told the reason was estrogen pills. -- (twin ) requiring (in 1997) --s/p Cholecystectomy in 1997 She is reporting right arm swelling since 2006. She reports that it felt like blew up overnight on one morning but she does not remember exact details. She says that she came out of the shower and all of a sudden clothes were too tight as well as right arm was significantly larger than the other. She reports that the right arm swelling has been about the same since 2006 without any improvement or worsening. However, pain and discomfort has been irregular but intermittent. She has been evaluated prior including with ultrasound and was told to have lymphedema. She has participated in physical therapy. She has also received manual lymphatic drainage, SIRISHA wrapping, as well as compression sleeve. None of these have made any difference. Her physical therapist mention to her about possibility of diagnosis of lipedema. She is also noticing that since September 2021 her left arm has started showing similar presentation which makes her very concerned. She lives in [facility] and specially drove for this visit to get help with diagnosis and management. No known prior personal history of any malignancy. We discussed that diagnosis of lipedema is unlikely given her clinical presentation as well as unilateral involvement. We discussed about possible differential diagnosis of lymphedema, large lipoma, enlarged lymph node, or focused hemihypertrophy of soft tissue/muscles. Sometimes these can be associated with AV fistula. 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 We discussed about obtaining lymphoscintigraphy of right upper extremity for further evaluation and help management. 03/30/22 First [facility] Pulmonary visit. She says that she is not sure why she is here. No outside records. History is circumspect. She reports that a year ago (end of 01/2021), she had three nights in a row of extensive heartburn and reflux, R shoulder was bothering her, felt SOB from the pain, getting worse day by day. Went to ED at [facility], CXR (presumably this was CT) found PE. Hospitalized for a couple of days, then to rehab on Eliquis. Eliquis for about 10 months. PE was attributed to estrogen. She recalls being told that she had a clot in each lung, no clots in the legs. Also saw Dr. Alexander in Rheum in [place] (affiliated with [facility] in [place]) for evaluation for possible lupus. Some clotting issue found, she is not sure what. Not felt to have lupus. Shoulder pain has resolved. GERD is still there, not as bad. She is much better than she was last year, and symptoms have been stable for months. Now, she is better since the blood clot, but still has SOTELO. Wiped out with any exertion, feels like she's doing cardio. Staying the same. ?Saw heart doctor for palpitations during in 1997. Her twins are living in [place]. My evaluation today is limited by lack of outside records and imaging. She has stable dyspnea on exertion, in the setting of a reported history of pulmonary emboli a year ago. Her lung exam today is normal, PFT's and CXR are normal, and exercise oximetry does not show desaturation with ambulation. As is often the case, it is likely that her dyspnea is multifactorial. Since she has a reported history of PE, it is possible that she could have residual clot with pulmonary hypertension (CTEPH), although this would be uncommon. She reports that her activity level decreased after the PE, so she is likely to be deconditioned. She reports that her weight is stable. She is not known to have other conditions, such as anemia, cardiac disease, neuromuscular disease. It is not known whether she might have a hypercoagulable state that was uncovered in her Rheumatology evaluation. She knows to seek medical attention promptly if her condition worsens. Plan -- We will request disc with images from [facility]. - We will request records and labs from Dr. Booker, Dr. Alexander, and [facility]. - We will check CBC, chemistries, coags, EKG. - We will schedule echocardiogram to evaluate RVSP, LVEF, valves. - Consider nuclear medicine lung scan to look for CTEPH, if there is evidence of PH. 07/22/22 No records or imaging received. Will request again. Labs not in computer from last time, although she recalls having them drawn. Will do today. 10/29/22 No change in chronic dyspnea. Weight down 9 lbs since she had embolism 02/2021, she reports. By [facility], she is down 5 lbs from her last visit here. She saw Hematology, found to have Factor V Leiden mutation. Recent note pending. I am not able to find report or images of CT showing PE, just CXR report. No outside records. Plan V/Q scan to look for evidence of unresolved clot, and CXR. We will request records again. 03/08/23 V/Q in October without evidence for PE. Outside imaging [facility] 02/2021 not received. No decrease in weight. Up 20 lbs since 11/05 in [facility], if accurate. Breathing is the same. Dyspneic with walking 5 minutes to her car. No regular physical activity. No new symptoms. No change in dyspnea. No acute pulmonary issue found. Her deconditioning and overweight contribute. I encouraged her to engage in a gradual program of regular walking, and to lose weight. She would like to return in one year to check on her breathing. I look forward to seeing her then. I have asked her to obtain the discharge summary from 03/05 at [facility], and disc from Radiology with images of CT, as we have not been able to obtain them. 08/19/23 She has had several weeks of pleuritic chest pains (nonspecific), transient R knee pain (sounds musuculoskeletal), and now dyspnea and lightheadedness (nonspecific), a reported history of recent pneumonia (no records or imaging), in the setting of known heterozygosity for Factor V Leiden mutation and a reported history of PE (no confirmatory records or imaging found). The differential diagnosis for her symptoms is broad, and includes venous thromboembolic disease, musculoskeletal, pneumonia or other inflammatory process, pneumothorax, unlikely cardiac, as well as emotional contribution to symptoms. Further evaluation in the ED is indicated at this time. I was unable to reach the Access Nurse, and I brought the patient to the ED and spoke with the triage staff. In addition to other ED evaluation, would consider: - CXR - D-dimer - CT for PE if indicated - EKG - labs - other evaluation as needed. Appreciate all care. Please let me know if there are any questions. Assessment & Plan (03/08/2023 9:28 AM EDT): Dr. Newell in Vascular Medicine 03/25/2021 41 y.o.female, in the Vascular Medicine clinic for Swelling of upper arm [M79.89]. PMH of, --Fibromyalgia --Chronic fatigue --OA/DJD --Migraine --Depression --Hx of B/L PE (Dx: 02/2021, Rx w/apixaban for 10 months), she was told the reason was estrogen pills. -- (twin ) requiring (in 1997) --s/p Cholecystectomy in 1997 She is reporting right arm swelling since 2006. She reports that it felt like blew up overnight on one morning but she does not remember exact details. She says that she came out of the shower and all of a sudden clothes were too tight as well as right arm was significantly larger than the other. She reports that the right arm swelling has been about the same since 2006 without any improvement or worsening. However, pain and discomfort has been irregular but intermittent. She has been evaluated prior including with ultrasound and was told to have lymphedema. She has participated in physical therapy. She has also received manual lymphatic drainage, SIRISHA wrapping, as well as compression sleeve. None of these have made any difference. Her physical therapist mention to her about possibility of diagnosis of lipedema. She is also noticing that since September 2021 her left arm has started showing similar presentation which makes her very concerned. She lives in [facility] and specially drove for this visit to get help with diagnosis and management. No known prior personal history of any malignancy. We discussed that diagnosis of lipedema is unlikely given her clinical presentation as well as unilateral involvement. We discussed about possible differential diagnosis of lymphedema, large lipoma, enlarged lymph node, or focused hemihypertrophy of soft tissue/muscles. Sometimes these can be associated with AV fistula. 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 We discussed about obtaining lymphoscintigraphy of right upper extremity for further evaluation and help management. 03/30/22 First [facility] Pulmonary visit. She says that she is not sure why she is here. No outside records. History is circumspect. She reports that a year ago (end of 01/2021), she had three nights in a row of extensive heartburn and reflux, R shoulder was bothering her, felt SOB from the pain, getting worse day by day. Went to ED at [facility], CXR (presumably this was CT) found PE. Hospitalized for a couple of days, then to rehab on Eliquis. Eliquis for about 10 months. PE was attributed to estrogen. She recalls being told that she had a clot in each lung, no clots in the legs. Also saw Dr. Alexander in Rheum in [place] (affiliated with [facility] in [place]) for evaluation for possible lupus. Some clotting issue found, she is not sure what. Not felt to have lupus. Shoulder pain has resolved. GERD is still there, not as bad. She is much better than she was last year, and symptoms have been stable for months. Now, she is better since the blood clot, but still has SOTELO. Wiped out with any exertion, feels like she's doing cardio. Staying the same. ?Saw heart doctor for palpitations during in 1997. Her twins are living in [place]. My evaluation today is limited by lack of outside records and imaging. She has stable dyspnea on exertion, in the setting of a reported history of pulmonary emboli a year ago. Her lung exam today is normal, PFT's and CXR are normal, and exercise oximetry does not show desaturation with ambulation. As is often the case, it is likely that her dyspnea is multifactorial. Since she has a reported history of PE, it is possible that she could have residual clot with pulmonary hypertension (CTEPH), although this would be uncommon. She reports that her activity level decreased after the PE, so she is likely to be deconditioned. She reports that her weight is stable. She is not known to have other conditions, such as anemia, cardiac disease, neuromuscular disease. It is not known whether she might have a hypercoagulable state that was uncovered in her Rheumatology evaluation. She knows to seek medical attention promptly if her condition worsens. Plan -- We will request disc with images from [facility]. - We will request records and labs from Dr. Booker, Dr. Alexander, and [facility]. - We will check CBC, chemistries, coags, EKG. - We will schedule echocardiogram to evaluate RVSP, LVEF, valves. - Consider nuclear medicine lung scan to look for CTEPH, if there is evidence of PH. 07/22/22 No records or imaging received. Will request again. Labs not in computer from last time, although she recalls having them drawn. Will do today. 10/29/22 No change in chronic dyspnea. Weight down 9 lbs since she had embolism 02/2021, she reports. By [facility], she is down 5 lbs from her last visit here. She saw Hematology, found to have Factor V Leiden mutation. Recent note pending. I am not able to find report or images of CT showing PE, just CXR report. No outside records. Plan V/Q scan to look for evidence of unresolved clot, and CXR. We will request records again. 03/08/23 No change in dyspnea. No acute pulmonary issue found. Her deconditioning and overweight contribute. I encouraged her to engage in a gradual program of regular walking, and to lose weight. She would like to return in one year to check on her breathing. I look forward to seeing her then. I have asked her to obtain the discharge summary from 03/05 at [facility], and disc from Radiology with images of CT, as we have not been able to obtain them. Assessment & Plan (10/29/2022 8:30 PM EST): Dr. Newell in Vascular Medicine 03/25/20[birth year] 41 y.o.female, in the Vascular Medicine clinic for Swelling of upper arm [M79.89]. PMH of, --Fibromyalgia --Chronic fatigue --OA/DJD --Migraine --Depression --Hx of B/L PE (Dx: 02/2021, Rx w/apixaban for 10 months), she was told the reason was estrogen pills. -- (twin ) requiring (in 1997) --s/p Cholecystectomy in 1997 She is reporting right arm swelling since 2006. She reports that it felt like blew up overnight on one morning but she does not remember exact details. She says that she came out of the shower and all of a sudden clothes were too tight as well as right arm was significantly larger than the other. She reports that the right arm swelling has been about the same since 2006 without any improvement or worsening. However, pain and discomfort has been irregular but intermittent. She has been evaluated prior including with ultrasound and was told to have lymphedema. She has participated in physical therapy. She has also received manual lymphatic drainage, SIRISHA wrapping, as well as compression sleeve. None of these have made any difference. Her physical therapist mention to her about possibility of diagnosis of lipedema. She is also noticing that since September 2021 her left arm has started showing similar presentation which makes her very concerned. She lives in [facility] and specially drove for this visit to get help with diagnosis and management. No known prior personal history of any malignancy. We discussed that diagnosis of lipedema is unlikely given her clinical presentation as well as unilateral involvement. We discussed about possible differential diagnosis of lymphedema, large lipoma, enlarged lymph node, or focused hemihypertrophy of soft tissue/muscles. Sometimes these can be associated with AV fistula. 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 We discussed about obtaining lymphoscintigraphy of right upper extremity for further evaluation and help management. 03/30/22 First [facility] Pulmonary visit. She says that she is not sure why she is here. No outside records. History is circumspect. She reports that a year ago (end of 01/2021), she had three nights in a row of extensive heartburn and reflux, R shoulder was bothering her, felt SOB from the pain, getting worse day by day. Went to ED at [facility], CXR (presumably this was CT) found PE. Hospitalized for a couple of days, then to rehab on Eliquis. Eliquis for about 10 months. PE was attributed to estrogen. She recalls being told that she had a clot in each lung, no clots in the legs. Also saw Dr. Alexander in Rheum in [place] (affiliated with [facility] in [place]) for evaluation for possible lupus. Some clotting issue found, she is not sure what. Not felt to have lupus. Shoulder pain has resolved. GERD is still there, not as bad. She is much better than she was last year, and symptoms have been stable for months. Now, she is better since the blood clot, but still has SOTELO. Wiped out with any exertion, feels like she's doing cardio. Staying the same. ?Saw heart doctor for palpitations during in 1997. Her twins are living in [place]. My evaluation today is limited by lack of outside records and imaging. She has stable dyspnea on exertion, in the setting of a reported history of pulmonary emboli a year ago. Her lung exam today is normal, PFT's and CXR are normal, and exercise oximetry does not show desaturation with ambulation. As is often the case, it is likely that her dyspnea is multifactorial. Since she has a reported history of PE, it is possible that she could have residual clot with pulmonary hypertension (CTEPH), although this would be uncommon. She reports that her activity level decreased after the PE, so she is likely to be deconditioned. She reports that her weight is stable. She is not known to have other conditions, such as anemia, cardiac disease, neuromuscular disease. It is not known whether she might have a hypercoagulable state that was uncovered in her Rheumatology evaluation. She knows to seek medical attention promptly if her condition worsens. Plan -- We will request disc with images from [facility]. - We will request records and labs from Dr. Booker, Dr. Alexander, and [facility]. - We will check CBC, chemistries, coags, EKG. - We will schedule echocardiogram to evaluate RVSP, LVEF, valves. - Consider nuclear medicine lung scan to look for CTEPH, if there is evidence of PH. 07/22/22 No records or imaging received. Will request again. Labs not in computer from last time, although she recalls having them drawn. Will do today. Return 3 months. 10/29/22 Plan V/Q scan to look for evidence of unresolved clot, and CXR. We will request records again. Return February. Assessment & Plan (08/21/2022 1:19 PM EDT): Dr. Newell in Vascular Medicine 03/25/2022 41 y.o.female, in the Vascular Medicine clinic for Swelling of upper arm [M79.89]. PMH of, --Fibromyalgia --Chronic fatigue --OA/DJD --Migraine --Depression --Hx of B/L PE (Dx: 02/2021, Rx w/apixaban for 10 months), she was told the reason was estrogen pills. -- (twin ) requiring (in 1997) --s/p Cholecystectomy in 1997 She is reporting right arm swelling since 2006. She reports that it felt like blew up overnight on one morning but she does not remember exact details. She says that she came out of the shower and all of a sudden clothes were too tight as well as right arm was significantly larger than the other. She reports that the right arm swelling has been about the same since 2006 without any improvement or worsening. However, pain and discomfort has been irregular but intermittent. She has been evaluated prior including with ultrasound and was told to have lymphedema. She has participated in physical therapy. She has also received manual lymphatic drainage, SIRISHA wrapping, as well as compression sleeve. None of these have made any difference. Her physical therapist mention to her about possibility of diagnosis of lipedema. She is also noticing that since September 2021 her left arm has started showing similar presentation which makes her very concerned. She lives in [facility] and specially drove for this visit to get help with diagnosis and management. No known prior personal history of any malignancy. We discussed that diagnosis of lipedema is unlikely given her clinical presentation as well as unilateral involvement. We discussed about possible differential diagnosis of lymphedema, large lipoma, enlarged lymph node, or focused hemihypertrophy of soft tissue/muscles. Sometimes these can be associated with AV fistula. 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 We discussed about obtaining lymphoscintigraphy of right upper extremity for further evaluation and help management. 03/30/22 First [facility] Pulmonary visit. She says that she is not sure why she is here. No outside records. History is circumspect. She reports that a year ago (end of 01/2021), she had three nights in a row of extensive heartburn and reflux, R shoulder was bothering her, felt SOB from the pain, getting worse day by day. Went to ED at [facility], CXR (presumably this was CT) found PE. Hospitalized for a couple of days, then to rehab on Eliquis. Eliquis for about 10 months. PE was attributed to estrogen. She recalls being told that she had a clot in each lung, no clots in the legs. Also saw Dr. Alexander in Rhe[facility] in [place] (affiliated with [facility] in [place]) for evaluation for possible lupus. Some clotting issue found, she is not sure what. Not felt to have lupus. Shoulder pain has resolved. GERD is still there, not as bad. She is much better than she was last year, and symptoms have been stable for months. Now, she is better since the blood clot, but still has SOTEOL. Wiped out with any exertion, feels like she's doing cardio. Staying the same. ?Saw heart doctor for palpitations during in 1997. Her twins are living in [place]. My evaluation today is limited by lack of outside records and imaging. She has stable dyspnea on exertion, in the setting of a reported history of pulmonary emboli a year ago. Her lung exam today is normal, PFT's and CXR are normal, and exercise oximetry does not show desaturation with ambulation. As is often the case, it is likely that her dyspnea is multifactorial. Since she has a reported history of PE, it is possible that she could have residual clot with pulmonary hypertension (CTEPH), although this would be uncommon. She reports that her activity level decreased after the PE, so she is likely to be deconditioned. She reports that her weight is stable. She is not known to have other conditions, such as anemia, cardiac disease, neuromuscular disease. It is not known whether she might have a hypercoagulable state that was uncovered in her Rheumatology evaluation. She knows to seek medical attention promptly if her condition worsens. Plan -- We will request disc with images from [facility]. - We will request records and labs from Dr. Booker, Dr. Alexander, and [facility]. - We will check CBC, chemistries, coags, EKG. - We will schedule echocardiogram to evaluate RVSP, LVEF, valves. - Consider nuclear medicine lung scan to look for CTEPH, if there is evidence of PH. 07/22/22 No records or imaging received. Will request again. Labs not in computer from last time, although she recalls having them drawn. Will do today. Return 3 months. Assessment & Plan (03/30/2022 1:42 PM EDT): My evaluation today is limited by lack of outside records and imaging. She has stable dyspnea on exertion, in the setting of a reported history of pulmonary emboli a year ago. Her lung exam today is normal, PFT's and CXR are normal, and exercise oximetry does not show desaturation with ambulation. As is often the case, it is likely that her dyspnea is multifactorial. Since she has a reported history of PE, it is possible that she could have residual clot with pulmonary hypertension (CTEPH), although this would be uncommon. She reports that her activity level decreased after the PE, so she is likely to be deconditioned. She reports that her weight is stable. She is not known to have other conditions, such as anemia, cardiac disease, neuromuscular disease. It is not known whether she might have a hypercoagulable state that was uncovered in her Rheumatology evaluation. She knows to seek medical attention promptly if her condition worsens. Plan -- We will request disc with images from [facility]. - We will request records and labs from Dr. Booker, Dr. Alexander, and [facility]. - We will check CBC, chemistries, coags, EKG. - We will schedule echocardiogram to evaluate RVSP, LVEF, valves. - Consider nuclear medicine lung scan to look for CTEPH, if there is evidence of PH. -- Return 3 months. Encounters Date Type Department Care Team Description 10/09/2025 2:30 PM EST Office Visit [facility] [address] [place] [address], 2nd Floor, [address] [place] [address] Curtis Lyles MD Dyspnea, unspecified type (Primary Dx) 10/09/2025 2:00 PM EST - 10/09/2025 11:59 PM EST Hospital Encounter [facility] Pulmonary and Critical Care Unit [address] [facility] [address], 2nd Floor, [address] [place] [address] Curtis Lyles MD Discharge Disposition: Home or Self Care 10/03/2025 Orders Only [facility] [address], 2nd Floor, [address] [place] [address] Curtis Lyles MD Bronchiectasis without complication (Primary Dx) 09/14/2025 Ancillary Orders [facility] [address] [place] [address] Curtis Lyles MD 09/14/2025 Ancillary Orders [facility] [address] [place] [address] Curtis Lyles MD 09/14/2025 Ancillary Orders [facility] [address] [place] [address] Curtis Lyles MD 09/12/2025 Telephone [facility] [address], 2nd Floor, [address] [place] [address] Curtis Lyles MD 09/06/2025 - 09/06/2025 11:59 PM EDT Hospital Encounter [facility] [address] [place] [address] Curtis Lyles MD Discharge Disposition: Home or Self Care 08/20/2025 Telephone [facility] [address], 2[address] Floor, [address] [place] [address] Curtis Lyles MD from Last 3 Months Immunizations Immunization Administration Dates Next Due HPV,quadrivalent 06/24/2007 Hepatitis B, unspecified formulation 1981 MMR 1982 Tdap 01/08/2020,05/01/2010 Social History Tobacco Use Types Packs/Day Years Used Date Smoking Tobacco: Never Smokeless Tobacco: Never Tobacco Cessation:Counseling Given: Not Answered Education Answer Date Recorded Are you interested [...] Orientation Straight 08/30/2020 11 :15 AM EDT Last Filed Vital Signs Vital Sign Reading Time Taken Comments Blood Pressure 100/72 10/09/2025 2:25 PM EST Pulse 89 10/09/2025 2:25 PM EST Temperature 35.9 C (96.7 F) 10/09/2025 2:25 PM EST Respiratory Rate 16 10/09/2025 2:25 PM EST Oxygen Saturation 98% 10/09/2025 2:25 PM EST Inhaled Oxygen Concentration - - Weight 90.7 kg (200 lb) 10/09/2025 2:25 PM EST Height 147.3 cm (4' 10 ) 10/09/2025 2:25 PM EST Body Mass Index 41.8 10/09/2025 2:25 PM EST Plan of Treatment Upcoming Encounters Date Type Department Care Team (Late st Contact Info) Description 12/19/2025 11:00 AM EST Office Visit [facility] [address] [place] [address], [address] [place] [address], [address] [place] [address] Bogdan Pederson MD, PhD [address] [place] [phone] [email or web address] 05/29/2026 8:00 AM EDT Office Visit [facility] [address] [place] [address], [facility] Floor, [address] [place] [address] Nima Song MD [address] [place] [phone] [email or web address] 10/01/2026 2:00 PM EST Office Visit [facility] [address], 2nd Floor, [address] [place] [address] Curtis Lyles MD [address] [facility] [address] [place] [address] [email or web address] Maintenance Due Date Last Done Comments DEPRESSION SCREENING 1993 HEPATITIS C SCREENING 1999 INFLUENZA VACCINE (#1) 2025 COVID-19 VACCINE (2024- season) 2025 CREATININE LEVEL 01/12/2026 01/12/2025, , 08/19/2023, Additional history exists POTASSIUM LEVEL 01/12/2026 01/12/2025, 07/16, 08/19/2023, Additional history exists PAP SMEAR 11/22/2026 11/22/2023, 02/10/2018 MAMMOGRAM 01/31/2027 01/31/2025, 01/13, 10/12/2022, Additional history exists SCREENING FOR DIABETES 01/12/2028 01/12/2025, 2024 Adult Td,Tdap Booster 01/08/2030 01/08/2020, 010 SMOKING STATUS SCREENING (Once After 26 Yrs) Completed 01/03/2025 HIV ONE-TIME SCREENING (18-65 YEARS) Completed 01/12/2025 HEPATITIS A VACCINES Aged Out No long er eligible based on patient's age to complete this topic HIB VACCINES Aged Out No longer eligi ble based on patient's age to complete this topic MENINGOCOCCAL VACCINES (ACWY) Aged Out No longer eligible based on patient's age to complete this topic MENINGOCOCCAL VACCINES (B) Aged Out N o longer eligible based on patient's age to complete this topic PNEUMOCOCCAL VACCINES (0-49 years) Aged Out No longer eligible based on patient's age to complete this topic Medical Devices Not on file Procedures Procedure Name Priority Date/Time Associated Diagnosis Comments HC SPMTRY W/VC EXPIRATORY FRED W/WO MXML VOL VNTJ Routine 10/09/2025 2:17 PM EST Bronchiectasis without complication XR CHEST OUTSIDE (NO INTERPRETATION) Routine 09/06/2025 12:00 AM EDT COMPREHENSIVE METABOLIC PANEL (CMP) Routine 01/12/2025 9:57 AM EST Unexplained weight loss BI MAMMOGRAM OUTSIDE (NO INTERPRETATION) Routine 10/12/2022 12:00 AM EST from Last 3 Months or Most Recently Relevant to Health Maintenance Results * Pulmonary Function Test Reason for Exam: Dyspnea/Shortness of Breath; Type of PFT Test: Spirometry with bronchodilator; Performing Location: [facility] (10/09/2025 2:17 PM EST) Anatomical Region Laterality Modality Other 10/09/2025 2:17 PM EST Laura Navarro CNP PFT ORDERABLES Final Result * XR Chest Outside (No Interpretation) (09/06/2025 12:00 AM EDT) Narrative [facility] IMG INTERFACES - 09/14/2025 1:37 PM EDT This study is for PACS storage only and not for interpretation. Curtis Lyles MD IMG OUTSIDE IMAGING W/OUT INTER PRETATION Final Result [facility] IMG INTERFACES * (ABNORMAL) Comprehensive metabolic panel (01/12/2025 9:57 AM EST) SODIUM 139 136 - 145 mmol/L [facility] POTASSIUM 4.4 3.4 - 5.1 mmol/L [facility] CHLORIDE 106 98 - 107 mmol/L [facility] CO2 23 22 - 31 mmol/L [facility] BUN 14 6 - 23 mg/dL [facility] CREATININE 1.17 0.50 - 1.20 mg/dL [facility] GLUCOSE 97 70 - 100 mg/dL [facility] ALBUMIN 4.6 3.5 - 5.2 g/dL [facility] TOTAL PROTEIN 7.5 6.4 - 8.3 g/dL [facility] CALCIUM 9.9 8.8 - 10.7 mg/dL [facility] ALKALINE PHOSPHATASE 46 35 - 130 U/L [facility] TOTAL BILIRUBIN 0.4 0.0 - 1.0 mg/dL [facility] AST 20 10 - 50 U/L [facility] ALT 16 10 - 50 U/L [facility] GLOBULIN 2.9 2.2 - 4.2 g/dL [facility] EGFR 59(L) >59 mL/min/1.7 3m2 [facility] Comment:Estimated glomerular filtration rate calculated using the CKD-EPI refit equation. ANION GAP 10 7 - 17 mmol/L [facility] 01/12/2025 9:57 AM EST 01/12/2025 10:04 AM EST us Phylicia Maurer MD LAB BLOOD BKR ORDERABLES Fi nal Result Performing Organization Address [facility] de Phone Number [facility] [address] [place] [address] * Mammogram Outside (No Interpretation) (10/12/2022 12:00 AM EST) Narrative [facility] IMG INTERFACES - 03/08/2023 9:15 AM EDT This study is for PACS storage only and not for interpretation. Curtis Lyles MD IMG OUTSIDE IMAGING W/OUT INTER PRETATION Final Result Performing Organization Address [facility] Co de Phone Number [facility] IMG INTERFACES from Last 3 Months or Most Recently Relevant to Health Maintenance [place] [address] [place] [address] [employer] MEDICARE [place]PL[place] [address] [place] [address] [address] RE[address] [facility] MEDICARE REPLACEMENT [address] [place] [address] MEDICARE REPLACEMENT Care Teams Product Designer Relationship Specialty Start Date End Date Vandana Antonio MD [address] [place] [phone] PCP - General Internal Medicine 03/09/22 Additional Source Comments The information contained in this document represents components of the legal health record. It is not the complete legal health record.[facility]
--- OUTSIDE RECORDS SUMMARY | 2025-11-06 07:47 | XMS_ITS | Encounter Summary ---
Author Organization [facility] Address [address] [place] [address] Phone Care Team Providers Care Signal System Testing Maintainer Name Role Phone Vandana Antonio MD Primary Care Pr ovider Encounter Details Date Type Department Care Team (Late st Contact Info) Description 04/30/2025 Telephone [facility] [address] [facility], 8th Floor, [address] [place] [address] Nima Pike MD [address] [place] [phone] [email or web address] Social History Tobacco Use Types Packs/Day [...] Description 12/19/2025 11:00 AM EST Office Visit [facility] [address] [facility], 8th Floor, [address] [place] [address] Bogdan Pederson MD, PhD [address] [facility] [place] [address] [email or web address] 05/29/2026 8:00 AM EDT Office Visit [facility] [address] [facility], 8th Floor, [address] [place] [address] Nima Song MD [address] [place] [address] [address] [place] [address] [email or web address] 10/01/2026 2:00 PM EST Office Visit [facility] [address] [facility], 2nd Floor, [address] [place] [address] Curtis Lyles MD [address] [facility] [address] [place] [address] [email or web address] documented as of this encounter Visit Diagnoses Not on filedocumented in this encounter Care Teams Signal System Testing Maintainer Relationship Specialty Start Date End Date Vandana Antonio MD [address] [place] [address] PCP - General Internal Medicine 03/09/22 documented as of this encounter Additional Source Comments The information contained in this document represents components of the legal health record. It is not the complete legal health record.[facility]
--- OUTSIDE RECORDS SUMMARY | 2025-11-06 07:48 | XMS_ITS | Encounter Summary ---
Author Organization [facility] Address [address] [place] [address] Phone Care Team Providers Care [employer]ds Marketing Name Role Phone Vandana Antonio MD Primary Care Pr ovider Encounter Details Date Type Department Care Team (Late st Contact Info) Description 03/13/2024 Procedure Pass [facility] Cardiac Ultrasound [address] [place] [address] Social History Tobacco Use Types Packs/Day Years [...] Description 12/19/2025 11:00 AM EST Office Visit [facility] [address] [facility], 8th Floor, [address] [place] [address] Bogdan Pederson MD, PhD [address] [place] [phone] [email or web address] 05/29/2026 8:00 AM EDT Office Visit [facility] Clinic [address] [facility], 8th Floor, [address] [place] [address] Nima Song MD [address] [facility] [address] [place] [address] [email or web address] 10/01/2026 2:00 PM EST Office Visit [facility] Pulmonary [facility] [address] [facility], 2nd Floor, [address] [place] [address] Curtis Lyles MD [address] [facility] [address] [place] [address] [email or web address] documented as of this encounter Visit Diagnoses Not on filedocumented in this encounter Care Teams [employer] Marketing Relationship Specialty Start Date End Date Vandana Antonio MD [address] [place] [id number] PCP - General Internal Medicine 03/09/22 documented as of this encounter Additional Source Comments The information contained in this document represents components of the legal health record. It is not the complete legal health record.[facility]
[2025-11-06 07:57] LABS: Lipase 20 U/L (8-78)
[2025-11-06 08:19] LABS: Resp Syncy Virus RNA Qual PCR NEGATIVE (Negative); SARS COV2 PCR INHOUSE NEGATIVE (Negative)
--- NOTE | 2025-11-06 08:28 | PC.NURSE ---
report obtained, took over care at 7am, pt a&ox3, vss, ambulatory with cane, rr equal/non labored, iv inserted, labs previously drawn, pt medicated per order, call mccarty within reach, plan of care ongoing
--- NOTE | 2025-11-06 10:06 | PC.NURSE ---
this nurse went into pts room found patient eating a can of potato chips- pt was needing to do a PO trial at some point, notified provider. additionally patient has not given urine sample which she is aware that we need.
[2025-11-06 11:11] VITALS: BP 92/60; PULSE 73; RESP 16; O2SAT 100
[2025-11-06 11:32] LABS: Appearance Urine Clear; Glucose Urine UA Negative (Negative); PH 6.0 (5.0-9.0); Specific Gravity - Urine 1.015 (1.005-1.025)
[2025-11-06 11:36] LABS: UPreg QC Valid YES
[2025-11-06 11:55] VITALS: BP 110/62; PULSE 72; RESP 16; TEMP 36; O2SAT 100
== END 2025-11-06 11:56 | disposition home or self-care (01) ==
PROVIDERS: Nurse Practitioner; Emergency Provider Emergency Medicine; PCP Internal Medicine
DX: R10.9 Unspecified abdominal pain (principal); K59.00 Constipation, unspecified; R53.1 Weakness; Z03.818 Encounter for observation for suspected exposure to other biological agents ruled out; R05.9 Cough, unspecified
CPT/HCPCS: 36415; 71046; 74018; 80053; 81003; 81025; 82248; 83690; 85025; 87637; 96361; 96374; 96375; 99284; J1308; J2405

== ENCOUNTER → 2025-11-06 07:22 | Outpatient (BNV) | payer OTHER, SELFPAY | PROVIDERS: Emergency Provider Emergency Medicine; PCP Internal Medicine; Visit Provider Radiology Diagnostic Radiology | DX: R05.9 Cough, unspecified (principal); K59.00 Constipation, unspecified | CPT/HCPCS: 71046; 74018 ==